=== PATIENT | male | born 1950 | race American Indian/Alaskan Native ===

== ENCOUNTER 2016-10-18 13:14 | Emergency (ER) | payer MEDICARE ==
[2016-10-18 13:14] VITALS: BMI 21.5
[2016-10-18 13:20] VITALS: BP 138/94; PULSE 94; TEMP 98.1
[2016-10-18 13:22] VITALS: RESP 18; O2SAT 97
--- NOTE | 2016-10-18 13:39 | ED PDOC ---
Lower Extremity Pain/Injury Time Seen by Provider: 10/18/16 13:34 Chief Complaint (Nursing): Lower Extremity Problem/Injury Chief Complaint (Provider): Left Foot Pain History Per: Patient History/Exam Limitations: no limitations Onset/Duration Of Symptoms: Days (x6) Current Symptoms Are (Timing): Still Present Additional Complaint(s): Petros Owen is a 66 year old male with a history of diabetes that presents to the ED with a chief complaint of left foot pain that he has been experiencing for the past six days. Patient reports that his pain is concentrated in the back of his left foot, closer to his ankle, and that his pain is exacerbated when we walks. Past Medical History Reviewed: Historical Data, Nursing Documentation, Vital Signs Vital Signs: Last Vital Signs Temp 98.1 F 10/18/16 13:19 Pulse 94 H 10/18/16 13:19 Resp 18 10/18/16 13:19 BP 138/94 H 10/18/16 13:19 Pulse Ox 97 10/18/16 13:19 - Medical History PMH: Anemia, CAD, Colonic Polyps, Fractures (FX. LEFT FOOT -CASTED ONLY), Hepatitis, HIV, HTN, Hypercholesterolemia, Peripheral Edema (in legs), End Stage Renal Disease, Chronic Kidney Disease Denies: Anxiety, Depression, Kidney Stones - Surgical History Surgical History: Coronary Stent (X1), Endoscopy - Family History Family History: States: Unknown Family Hx - Home Medications Home Medications: Ambulatory Orders Medication Instructions Recorded Aspirin [Aspir 81] 81 mg PO DAILY 04/18/12 Paricalcitol [Zemplar] 1 mcg PO DAILY 04/18/12 Clopidogrel Hydrogen Sulfate 75 mg PO DAILY 06/14/12 [Plavix] Minoxidil 10 mg PO BID 06/14/12 Atorvastatin Calcium [Lipitor] 40 mg PO HS 01/12/15 Carvedilol 25 mg PO BID 01/12/15 Insulin Detemir [Levemir] 10 unit SC HS 01/12/15 Sevelamer Carbonate [Renvela] 1,600 mg PO ACTID 01/12/15 hydrALAZINE [Apresoline] 50 mg PO TID 01/12/15 Doxycycline Hyclate 100 mg PO BID 03/26/15 Metronidazole [Flagyl] 250 mg PO BID #20 tab 04/02/15 Tramadol Hydrochloride [Tramadol] 50 mg PO Q4 PRN #20 tab 04/02/15 Doxycycline Hyclate 100 mg PO BID #14 capsule 10/17/15 Diclofenac Sodium 5 gm TP DAILY #1 gel..gram. 10/18/16 - Allergies Allergies/Adverse Reactions: Allergies Allergy/AdvReac Type Severity Reaction Status Date / Time No Known Allergies Allergy Verified 10/18/16 13:16 Review of Systems Musculoskeletal: Positive for: Foot Pain (left foot pain) Physical Exam - Reviewed Nursing Documentation Reviewed: Yes Vital Signs Reviewed: Yes - Physical Exam Appears: Positive for: Non-toxic, No Acute Distress Head Exam: Positive for: ATRAUMATIC, NORMOCEPHALIC Skin: Positive for: Normal Color, Warm Cardiovascular/Chest: Positive for: Regular Rate, Rhythm. Negative for: Murmur Respiratory: Positive for: Normal Breath Sounds. Negative for: Wheezing Extremity: Positive for: Tenderness (TTP left achilles tendon). Negative for: Calf Tenderness, Swelling, Other (Negative [place]' test. No ulcerations. ) Neurologic/Psych: Positive for: Alert, bowstring maker II-XII, Oriented - ECG O2 Sat by Pulse Oximetry: 97 (RA) Pulse Ox Interpretation: Normal Medical Decision Making Medical Decision Making: Impression: Achilles Tendinitis Plan: * X-Ray Left Foot * Reevaluation 14:07 X-Ray is negative. Will give patient Rx Diclofenac Sodium cream for pain. Recommended podiatry consult for orthotics, insole for shoes, and exercises for Achilles. Patient stable for discharge home. Scribe Attestation: Documented by Lenora Garcia, acting as a scribe for Ermelinda Boateng PA-C. Provider Scribe Attestation: All medical record entries made by the Scribe were at my direction and personally dictated by me. I have reviewed the chart and agree that the record accurately reflects my personal performance of the history, physical exam, medical decision making, and the department course for this patient. I have also personally directed, reviewed, and agree with the discharge instructions and disposition. Disposition - Clinical Impression Clinical Impression: Achilles tendinitis - Patient ED Disposition Is Patient to be Admitted: No Counseled Patient/Family Regarding: Studies Performed, Diagnosis, Need For Followup, Rx Given - Disposition Referrals: [facility] [Outside] Podiatry Clinic [Outside] Disposition: Routine/Home Disposition Time: 14:07 Condition: STABLE Additional Instructions: review the exercises for Achilles tendinitis provided to you from the ER Prescriptions: Diclofenac Sodium 5 gm TP DAILY #1 gel..gram. Instructions: Achilles Tendinitis (ED)
--- NOTE | 2016-10-18 14:20 | RAD ---
PROCEDURE: Left Foot Radiographs. HISTORY: foot pain COMPARISON: None. FINDINGS: BONES: No displaced fracture. Osteopenia. JOINTS: Degenerative changes are SOFT TISSUES: Mild diffuse soft tissue swelling. OTHER FINDINGS: Posterior calcaneal spurring. Hammertoe deformities of the 2nd through 5th digits. IMPRESSION: No definite fracture. Further evaluation can be obtained if clinical symptoms persists.
== END 2016-10-18 14:00 | disposition home or self-care (01) ==
LOC: H.ER 13:14
DX: M76.62 Achilles tendinitis, left leg (principal)

== ENCOUNTER 2017-02-26 10:33 | Inpatient (IN) | payer BC, MEDICARE ==
[2017-02-26 10:39] VITALS: BMI 25.0
[2017-02-26] MEDS ORDERED: Iohexol 240 (50 ml) PO ONE (11:16)
[2017-02-26] MEDS ORDERED: HYDROmorphone 0.5 mg/0.5 ml ISec IVP STA (11:16)
--- NOTE | 2017-02-26 11:36 | ED PDOC ---
HPI: Abdomen Time Seen by Provider: 02/26/17 10:59 Chief Complaint (Nursing): GI Problem Chief Complaint (Provider): abdominal pain History Per: Patient History/Exam Limitations: no limitations Onset/Duration Of Symptoms: Days (x1) Current Symptoms Are (Timing): Still Present Additional Complaint(s): Petros Owen is a 66 year old male with previous medical history of diabetes, hypertension, HIV and chronic kidney disease, who presents to the emergency department with a complaint of abdominal pain associated with diarrhea and 2 episodes of vomiting ongoing since 0 last night after eating at a restaurant. Denied any fever or chills. Patient stated he used Milk of Magnesia for symptom relief. PMD: Mati South MD Past Medical History Reviewed: Historical Data, Nursing Documentation, Vital Signs Vital Signs: Last Vital Signs Temp 98.5 F 02/27/17 12:48 Pulse 91 H 02/27/17 15:30 Resp 18 02/27/17 12:48 BP 163/71 H 02/27/17 12:48 Pulse Ox 96 02/27/17 12:48 - Medical History PMH: Anemia, CAD, Colonic Polyps, Fractures (FX. LEFT FOOT -CASTED ONLY), Hepatitis, HIV, HTN, Hypercholesterolemia, Peripheral Edema (in legs), End Stage Renal Disease, Chronic Kidney Disease Denies: Anxiety, Depression, Kidney Stones - Surgical History Surgical History: Coronary Stent (X1), Endoscopy - Family History Family History: States: Unknown Family Hx - Social History Current smoker - smoking cessation education provided: No Ex-Smoker (has not smoked in the last 12 months): Yes Alcohol: None Drugs: Denies - Home Medications Home Medications: Ambulatory Orders Medication Instructions Recorded Atorvastatin [Lipitor] 10 mg PO DAILY 02/26/17 Carvedilol [Coreg] 25 mg PO DAILY 02/26/17 Cinacalcet [Sensipar] 60 mg PO DAILY 02/26/17 Clopidogrel [Plavix] 75 mg PO DAILY 02/26/17 Insulin Detemir [Levemir] 100 unit SC DAILY 02/26/17 Minoxidil [Loniten] 10 mg PO DAILY 02/26/17 Paricalcitol [Zemplar] 1 mcg PO DAILY 02/26/17 - Allergies Allergies/Adverse Reactions: Allergies Allergy/AdvReac Type Severity Reaction Status Date / Time No Known Allergies Allergy Verified 10/18/16 13:16 Review of Systems ROS Statement: Except As Marked, All Systems Reviewed And Found Negative Constitutional: Negative for: Fever, Chills Gastrointestinal: Positive for: Vomiting (x2), Abdominal Pain, Diarrhea Physical Exam - Reviewed Nursing Documentation Reviewed: Yes Vital Signs Reviewed: Yes - Physical Exam Appears: Positive for: Well, Non-toxic, No Acute Distress Head Exam: Positive for: ATRAUMATIC, NORMAL INSPECTION, NORMOCEPHALIC Skin: Positive for: Normal Color Eye Exam: Positive for: Normal appearance ENT: Positive for: Normal ENT Inspection. Negative for: Pharyngeal Erythema Neck: Positive for: Normal, Painless ROM, Supple. Negative for: Decreased ROM Cardiovascular/Chest: Positive for: Regular Rate, Rhythm, Chest Non Tender Respiratory: Positive for: Normal Breath Sounds. Negative for: Decreased Breath Sounds, Respiratory Distress Gastrointestinal/Abdominal: Positive for: Tenderness (diffused), Distended. Negative for: Normal Exam Extremity: Positive for: Normal ROM. Negative for: Tenderness Neurologic/Psych: Positive for: Alert, Oriented - Laboratory Results Result Diagrams: 02/27/17 08:00 02/27/17 08:00 - ECG ECG: Positive for: Interpreted By Me, Viewed By Me ECG Rhythm: Positive for: Normal QRS, Normal ST Segment, Sinus Rhythm. Negative for: ST/T Changes Rate: 91 Medical Decision Making Medical Decision Making: Initial Impression: Abdominal pain Differential Diagnosis: SBO; appendicitis; gastroenteritis; colitis Initial Plan: * CT ABD/pelvis * EKG * CMP * Lipase * Urine dipstick * CBC * Dilaudid 0.5mg IVP * Omnipaque 50ml po * Zofran 4mg IVP [address] Prabhjot davidson for DR Conner patients primary digital media coordinator. She will arrange emergent dialysis tonight. Time: 1500 --Patient was signed out to Dr. Mi Armstrong. Pending CT results. Scribe Attestation: Documented by Kelle Peacock, acting as a scribe for Juan Alberto Parker MD. Provider Scribe Attestation: All medical record entries made by the Scribe were at my direction and personally dictated by me. I have reviewed the chart and agree that the record accurately reflects my personal performance of the history, physical exam, medical decision making, and the department course for this patient. I have also personally directed, reviewed, and agree with the discharge instructions and disposition. Disposition - Clinical Impression Clinical Impression: Abdominal pain, End stage kidney disease, Hyperkalemia - Patient ED Disposition Is Patient to be Admitted: Transfer of Care Counseled Patient/Family Regarding: Studies Performed, Diagnosis - Disposition Disposition: Transfer of Care Disposition Time: 15:00 Condition: FAIR
[2017-02-26] MEDS ORDERED: Iohexol 240 (50 ml) ONE (11:39)
[2017-02-26] MEDS ORDERED: HYDROmorphone 0.5 mg/0.5 ml ISec ONE (11:40)
[2017-02-26 13:11] LABS: BASO % 0.5 % (0.0-2.0); EOS % 0.2 % (0.0-4.0); HEMATOCRIT 38.2 % (35.0-51.0); LYMPH # 0.5 K/uL (1.0-4.3); LYMPH % 5.1 % (20.0-40.0); MEAN CELL VOLUME 82.6 fl (80.0-94.0); MEAN CORPUSCULAR HGB CONC 32.7 g/dL (33.0-37.0); MEAN PLATELET VOLUME 8.8 fl (7.2-11.7); MONO # 0.7 K/uL (0.0-0.8); MONO % 7.9 % (0.0-10.0); NEUT # 7.9 K/uL (1.8-7.0); NEUT % 86.3 % (50.0-75.0); NRBC % 0.1 % (0.0-0.0); PLATELET COUNT 131 K/uL (130-400); RED CELL DISTRIBUTION WIDTH 16.3 % (11.5-14.5); WHITE BLOOD COUNT 9.1 K/uL (4.8-10.8)
[2017-02-26 13:44] LABS: ALB/GLOB RATIO 1.1 (1.0-2.1); BILIRUBIN,TOTAL 0.7 mg/dl (0.2-1.3); CALCIUM 9.1 mg/dL (8.4-10.2); TOTAL PROTEIN 9.8 G/DL (6.3-8.2)
[2017-02-26] MEDS ORDERED: Insulin Regular 100 units/ml IV STA (13:52)
[2017-02-26] MEDS ORDERED: Albuterol 0.083% Inhal Sol (2.5 mg/3 mL) UD INH STA (13:53)
[2017-02-26] MEDS ORDERED: Sod Polystyrene Sulf 15 gm/60 ml Susp PO ONE (13:53)
[2017-02-26 14:09] LABS: NEUTROPHIL 88 % (42-75); TOTAL CELLS COUNTED 100
[2017-02-26] MEDS ORDERED: Sod Polystyrene Sulf 15 gm/60 ml Susp ONE (14:35)
[2017-02-26] MEDS ORDERED: Albuterol 0.083% Inhal Sol (2.5 mg/3 mL) UD ONE (14:35)
[2017-02-26] MEDS ORDERED: WATER IV ONE (14:45)
[2017-02-26] MEDS ORDERED: DEXTROSE 5% IV ONE (14:45)
[2017-02-26] MEDS ORDERED: CALCIUM GLUCONATE IV ONE (14:45)
[2017-02-26] MEDS ORDERED: Insulin Regular 100 units/ml ONE (14:47)
--- NOTE | 2017-02-26 15:14 | ED PDOC ---
- Laboratory Results Result Diagrams: 03/03/17 05:30 03/03/17 05:30 Interpretation Of Abn Labs: NOTE: Above labs are not labs obtained at time of ER evaluation Medical Decision Making Medical Decision Making: Time: 1500 --Patient was endorsed to provider by Dr. Juan Alberto Parker. Pending CT results, re-assessment and final disposition. Accession No. : [id number] Patient Name / ID : MARIAM GARCIA / [id number] Exam Date : 02/26/2017 16:00:11 ( Approved ) Study Comment : Sex / Age : M / 66Y Creator : Navjot Martinez MD Dictator : Finance Executive : Train Operations Supervisor : Navjot Martinez MD Approver2 : Report Date : 02/26/2017 17:13:07 My Comment : PROCEDURE: CT abdomen pelvis dated 02/26/2017. HISTORY: Abdominal pain COMPARISON: None. TECHNIQUE: Contiguous axial images of the abdomen and pelvis pelvis performed of following oral and intravenous injection of approximately 100 cc of Omnipaque 300 contrast material. Coronal and Sagittal reformats generated. Radiation dose: Total exam DLP = 954.89 mGy-cm. This CT exam was performed using one or more of the following dose reduction techniques: Automated exposure control, adjustment of the mA and/or kV according to patient size, and/or use of iterative reconstruction technique. FINDINGS: LOWER THORAX: Mild bibasilar atelectasis/scarring changes right greater than left. Heart appears enlarged. There also appears to be a small pericardial effusion. LIVER: Liver exhibits relatively normal size measuring approximately 17.7 cm in CC dimension. Mild diffuse fatty hepatic infiltration. No obvious hepatic mass collection or calcification. Portal and splenic veins are opacified. The GALLBLADDER AND BILE DUCTS: Gallbladder is physiologically distended. No evidence of intraluminal gallbladder calculi. The PANCREAS: Pancreas is slightly atrophic and fatty replaced. No obvious pancreatic masses collections or calcifications. . SPLEEN: The spleen exhibits normal size. Multiple low-attenuation foci seen scattered throughout the hepatic parenchyma nonspecific. Findings could represents multiple small hemangiomas. . Possibility of infectious and or inflammatory ( including septic emboli) versus underlying malignant lesions not excluded. Clinical correlation recommended. ADRENALS: There are no adrenal lesions identified on this study. KIDNEYS AND URETERS: Apparent status post right nephrectomy. There are multiple rounded varying sized low-attenuation lesions seen scattered throughout the right kidney the largest arising from the anterior medial margin upper/ midpole right kidney that measures approximately 4.27 x 4.1 cm. Most of the lesions felt to represent cysts however several exhibit Hounsfield units and a much higher than simple cysts of. Pre and post-contrast MRI could be performed to exclude any solid components (malignant lesion) given the at current findings of right-sided nephrectomy. . BLADDER: Urinary bladder is incompletely distended which may account for thick-walled appearance. Muscular hypertrophy may contribute. The possibility of cystitis or other intrinsic/invasive wall lesion not excluded. REPRODUCTIVE: Prostate gland measures approximately 3.9 cm in transverse dimension. The small spur at static calcifications are present. The APPENDIX: The appendix is not seen with complete certainty. Metallic clips and/or suture near the cecum the suggest prior appendectomy however clinical correlation with surgical history recommended. . BOWEL: Evaluation of the bowel is somewhat limited due to incomplete opacification. The stomach is incompletely distended which presumably accounts for thick- walled appearance. Gastritis or other intrinsic/invasive wall lesion not excluded. There are multiple distended loops of small bowel some of which contain air . Liquid stool and air seen in the right colon with smaller amount of stool seen throughout the remaining partially collapsed colon. Findings most likely representing ileus however follow-up of plain film of the abdomen in 6-12 hours could be performed to assess for passage contrast material into the colon. PERITONEUM: Unremarkable. No fluid collection. No free air. Small fat containing umbilical hernia. There is a small fat containing left inguinal hernia LYMPH NODES: Unremarkable. No enlarged lymph nodes. VASCULATURE: No evidence of abdominal aortic or iliac artery aneurysms. Atherosclerotic plaque seen along the abdominal aorta and iliac artery. BONES: Multilevel degenerative spondylosis of the lower thoracic and lumbar spine. Changes most notably affecting L4-L5 level. OTHER FINDINGS: None. IMPRESSION: Small pericardial effusion. Mild fatty hepatic infiltration. Findings suggest ileus however confirmation with plain film radiographs in 6-12 hours to assess for passage of contrast material into the colon recommended for confirmation. Appendix is not seen with certainty on this exam and there arm radiopaque suture or metallic clips in the region of the cecum; findings suggest prior cholecystectomy however correlation with surgical history recommended. Apparent status post right nephrectomy. Multiple varying sized rounded low- attenuation lesions scattered throughout the left kidney some of which are clearly cysts and others exhibit Hounsfield units higher than that of simple cysts. Follow-up pre and post-contrast MRI of the left kidney and to confirm cyst of indeterminate and exclude any solid components (malignant lesions) given the findings of right-sided nephrectomy. There are multiple low-attenuation lesions scattered throughout the splenic parenchyma which could represent splenic hemangiomas, infectious/ inflammatory (including septic emboli) or infiltrative malignant lesions not excluded. See above discussion for additional details and findings. Findings discussed with Dr Armstrong at approximately 5:25 p.m. with written down and read back verification. DW Surgery DW Dr South, ID and PMD DW Dr Glaser admitting for Dr Brannon RUCKER pt findings. He reports that he feels he may be getting better and requesting food/drink. However will keep NPO pending continued evaluation and management. Scribe Attestation: Documented by Kelle Peacock, acting as a scribe for Mi Amrstrong MD. Provider Scribe Attestation: All medical record entries made by the Scribe were at my direction and personally dictated by me. I have reviewed the chart and agree that the record accurately reflects my personal performance of the history, physical exam, medical decision making, and the department course for this patient. I have also personally directed, reviewed, and agree with the discharge instructions and disposition. Disposition Counseled Patient/Family Regarding: Studies Performed, Diagnosis - Clinical Impression Clinical Impression: Abdominal pain, End stage kidney disease, Hyperkalemia, Ileus - POA Present On Arrival: Poor Glycemic Control - Disposition Disposition: Admitted as In-Patient Disposition Time: 17:00 Condition: FAIR
[2017-02-26] MEDS ORDERED: Iohexol 300 100 ML IJ ONE (15:53)
[2017-02-26] MEDS ORDERED: Sodium Chloride 0.9% 50 ML IV ONE (15:53)
--- NOTE | 2017-02-26 17:28 | CT ---
PROCEDURE: CT abdomen pelvis dated 02/26/2017. HISTORY: Abdominal pain COMPARISON: None. TECHNIQUE: Contiguous axial images of the abdomen and pelvis pelvis performed of following oral and intravenous injection of approximately 100 cc of Omnipaque 300 contrast material. Coronal and Sagittal reformats generated. Radiation dose: Total exam DLP = 954.89 mGy-cm. This CT exam was performed using one or more of the following dose reduction techniques: Automated exposure control, adjustment of the mA and/or kV according to patient size, and/or use of iterative reconstruction technique. FINDINGS: LOWER THORAX: Mild bibasilar atelectasis/scarring changes right greater than left. Heart appears enlarged. There also appears to be a small pericardial effusion. LIVER: Liver exhibits relatively normal size measuring approximately 17.7 cm in CC dimension. Mild diffuse fatty hepatic infiltration. No obvious hepatic mass collection or calcification. Portal and splenic veins are opacified. The GALLBLADDER AND BILE DUCTS: Gallbladder is physiologically distended. No evidence of intraluminal gallbladder calculi. The PANCREAS: Pancreas is slightly atrophic and fatty replaced. No obvious pancreatic masses collections or calcifications. . SPLEEN: The spleen exhibits normal size. Multiple low-attenuation foci seen scattered throughout the hepatic parenchyma nonspecific. Findings could represents multiple small hemangiomas. . Possibility of infectious and or inflammatory (including septic emboli) versus underlying malignant lesions not excluded. Clinical correlation recommended. ADRENALS: There are no adrenal lesions identified on this study. KIDNEYS AND URETERS: Apparent status post right nephrectomy. There are multiple rounded varying sized low-attenuation lesions seen scattered throughout the right kidney the largest arising from the anterior medial margin upper/ midpole right kidney that measures approximately 4.27 x 4.1 cm. Most of the lesions felt to represent cysts however several exhibit Hounsfield units and a much higher than simple cysts of. Pre and post-contrast MRI could be performed to exclude any solid components (malignant lesion) given the at current findings of right-sided nephrectomy. . BLADDER: Urinary bladder is incompletely distended which may account for thick-walled appearance. Muscular hypertrophy may contribute. The possibility of cystitis or other intrinsic/invasive wall lesion not excluded. REPRODUCTIVE: Prostate gland measures approximately 3.9 cm in transverse dimension. The small spur at static calcifications are present. The APPENDIX: The appendix is not seen with complete certainty. Metallic clips and/or suture near the cecum the suggest prior appendectomy however clinical correlation with surgical history recommended. . BOWEL: Evaluation of the bowel is somewhat limited due to incomplete opacification. The stomach is incompletely distended which presumably accounts for thick-walled appearance. Gastritis or other intrinsic/invasive wall lesion not excluded. There are multiple distended loops of small bowel some of which contain air . Liquid stool and air seen in the right colon with smaller amount of stool seen throughout the remaining partially collapsed colon. Findings most likely representing ileus however follow-up of plain film of the abdomen in 6-12 hours could be performed to assess for passage contrast material into the colon. PERITONEUM: Unremarkable. No fluid collection. No free air. Small fat containing umbilical hernia. There is a small fat containing left inguinal hernia LYMPH NODES: Unremarkable. No enlarged lymph nodes. VASCULATURE: No evidence of abdominal aortic or iliac artery aneurysms. Atherosclerotic plaque seen along the abdominal aorta and iliac artery. BONES: Multilevel degenerative spondylosis of the lower thoracic and lumbar spine. Changes most notably affecting L4-L5 level. OTHER FINDINGS: None. IMPRESSION: Small pericardial effusion. Mild fatty hepatic infiltration. Findings suggest ileus however confirmation with plain film radiographs in 6-12 hours to assess for passage of contrast material into the colon recommended for confirmation. Appendix is not seen with certainty on this exam and there arm radiopaque suture or metallic clips in the region of the cecum; findings suggest prior cholecystectomy however correlation with surgical history recommended. Apparent status post right nephrectomy. Multiple varying sized rounded low-attenuation lesions scattered throughout the left kidney some of which are clearly cysts and others exhibit Hounsfield units higher than that of simple cysts. Follow-up pre and post-contrast MRI of the left kidney and to confirm cyst of indeterminate and exclude any solid components (malignant lesions) given the findings of right-sided nephrectomy. There are multiple low-attenuation lesions scattered throughout the splenic parenchyma which could represent splenic hemangiomas, infectious/ inflammatory (including septic emboli) or infiltrative malignant lesions not excluded. See above discussion for additional details and findings. Findings discussed with Dr Armstrong at approximately 5:25 p.m. with written down and read back verification.
--- NOTE | 2017-02-26 20:52 | CP.PCM.CON ---
<Manoj Adames - Last Filed: 02/26/17 21:59> History of Present Illness - History of Present Illness History of Present Illness: General Surgery Consult Re: Ileus HPI: 66M presented to the emergency department with a complaint of abdominal pain and nausea with 2 induced episodes of clear emesis (spit per pt) today. Pain began after he woke this AM. Pt believes it was the [employer] meal he had at 19:00 last night. Last BM was this morning after he got up. Denies F/C , SOB, chest pains, abnormal bowel movements. Patient stated he used Milk of Magnesia without relief. Currently without any pain. PMH: Anemia, CAD, DM, Hx Hepatitis, HIV, HTN, ESRD on HD, HLD, Hx Renal cell CA R kidney PSH: R Nephrectomy, L arm AVF, Ventral hernia repair SH:Ex smoker and Drinker since 1997. Distant history of drug use, last in 2005. All: NKDA Meds: See MAR Review of Systems - Review of Systems All systems: reviewed and no additional remarkable complaints except (as per HPI ) Past Patient History - Infectious Disease Hx of Infectious Diseases: None - Tetanus Immunizations Tetanus Immunization: Unknown - Past Medical History & Family History Past Medical History?: Yes - Past Social History Alcohol: None Drugs: Denies - CARDIAC Hx Hypercholesterolemia: Yes Hx Hypertension: Yes Hx Peripheral Edema: Yes (in legs) - PULMONARY Hx Respiratory Disorders: No - NEUROLOGICAL Hx Neurological Disorder: No - HEENT Hx Cataracts: Yes (right eye) - RENAL Hx Chronic Kidney Disease: Yes Hx Kidney Stones: No - ENDOCRINE/METABOLIC Hx Diabetes Mellitus Type 2: Yes - HEMATOLOGICAL/ONCOLOGICAL Hx Anemia: Yes Hx Human Immunodeficiency Virus (HIV): Yes - INTEGUMENTARY Hx Dermatological Problems: Yes Other/Comment: Hx abcess - MUSCULOSKELETAL/RHEUMATOLOGICAL Hx Fractures: Yes (FX. LEFT FOOT -CASTED ONLY) - GASTROINTESTINAL Hx Gastrointestinal Disorders: Yes Other/Comment: HX. ABD. HERNIA. HX. RIGHT INGUINAL HERNIA - GENITOURINARY/GYNECOLOGICAL Hx Genitourinary Disorders: Yes Other/Comment: PT. STILL PASSES SOME URINE. - PSYCHIATRIC Hx Anxiety: No Hx Depression: No - SURGICAL HISTORY Hx Coronary Stent: Yes (X1) - ANESTHESIA Hx Anesthesia: Yes Hx Anesthesia Reactions: No Hx Malignant Hyperthermia: No Meds Allergies/Adverse Reactions: Allergies Allergy/AdvReac Type Severity Reaction Status Date / Time No Known Allergies Allergy Verified 10/18/16 13:16 - Medications Medications: Current Medications Dextrose/Sodium Chloride (Dextrose 5%/0.45% Ns 1000 Ml) 1,000 mls @ 80 mls/hr IV .[id number] [facility] Stop: 02/27/17 20:40 Insulin Human Regular (Humulin R) 0 units SC ACHS [facility] PRN Reason: Protocol Pantoprazole Sodium (Protonix Inj) 40 mg IVP DAILY [facility] Physical Exam - Constitutional Appears: Non-toxic, No Acute Distress - Head Exam Head Exam: ATRAUMATIC, NORMOCEPHALIC - Eye Exam Eye Exam: EOMI. absent: Scleral icterus - ENT Exam ENT Exam: Mucous Membranes Dry Additional comments: trachea midline - Respiratory Exam Respiratory Exam: NORMAL BREATHING PATTERN. absent: Respiratory Distress - Cardiovascular Exam Cardiovascular Exam: Tachycardia (mild). absent: JVD - GI/Abdominal Exam GI & Abdominal Exam: Soft. absent: Firm, Guarding, Rebound, Rigid, Tenderness Additional comments: well healed midline incision - Rectal Exam Rectal Exam: Deferred - Extremities Exam Extremities exam: Positive for: normal capillary refill. Negative for: calf tenderness, pedal edema - Back Exam Back exam: absent: CVA tenderness (L), CVA tenderness (R) - Neurological Exam Neurological exam: Alert, Oriented x3 - Psychiatric Exam Psychiatric exam: Normal Affect, Normal Mood - Skin Skin Exam: Dry, Warm Results - Vital Signs Recent Vital Signs: Last Vital Signs Temp 98.1 F 02/26/17 20:05 Pulse 101 H 02/26/17 20:05 Resp 18 02/26/17 20:05 BP 134/85 02/26/17 20:05 Pulse Ox 98 02/26/17 20:05 - Labs Result Diagrams: 02/26/17 13:02 02/26/17 13:02 Labs: Laboratory Results - last 24 hr 02/26/17 02/26/17 13:02 13:02 WBC 9.1 RBC 4.63 Hgb 12.5 Hct 38.2 MCV 82.6 MCH 27.0 MCHC 32.7 L RDW 16.3 H Plt Count 131 MPV 8.8 Neut % (Auto) 86.3 H Lymph % (Auto) 5.1 L [place] % (Auto) 7.9 Eos % (Auto) 0.2 Baso % (Auto) 0.5 Neut # 7.9 H Lymph # 0.5 L [place] # 0.7 Eos # 0.0 Baso # 0.0 Neutrophils % (Manual) 88 H Lymphocytes % (Manual) 5 L Monocytes % (Manual) 7 Platelet Estimate Normal Anisocytosis (manual) Slight Sodium 145 Potassium 6.0 H Chloride 92 L Carbon Dioxide 33 H Anion Gap 26 H BUN 59 H Creatinine 8.3 H* Est GFR ( Amer) 8 Est GFR (Non-Af Amer) 7 Random Glucose 376 H Calcium 9.1 Total Bilirubin 0.7 AST 32 ALT 38 Alkaline Phosphatase 177 H Total Protein 9.8 H Albumin 5.1 H Globulin 4.7 H Albumin/Globulin Ratio 1.1 Lipase 384 H - Imaging and Cardiology CT scan - abdomen Status: Image reviewed by me, Report reviewed by me Assessment & Plan - Assessment and Plan (Free Text) Assessment: 66M with ileus Plan: NPO IVF Monitor for BM Pain control PRN Flat plate in AM to follow up Zofran If vomiting, may place NGT Dr. Gottlieb to see in AM D/W Dr. Chery Adames PGY4 <Fuad Gottlieb - Last Filed: 02/27/17 16:08> History of Present Illness - History of Present Illness History of Present Illness: Patient was seen and examined at the bedside. Agree with resident's note above. Meds - Medications Medications: Current Medications Dextrose/Sodium Chloride (Dextrose 5%/0.45% Ns 1000 Ml) 1,000 mls @ 80 mls/hr IV .[id number] [facility] Stop: 02/27/17 20:40 Last Admin: 02/27/17 09:29 Dose: 80 mls/hr Insulin Human Regular (Humulin R) 0 units SC ACHS [facility] PRN Reason: Protocol Last Admin: 02/27/17 13:59 Dose: 3 u Pantoprazole Sodium (Protonix Inj) 40 mg IVP DAILY [facility] Last Admin: 02/27/17 11:22 Dose: 40 mg Results - Vital Signs Recent Vital Signs: Last Vital Signs Temp 99.1 F 02/27/17 15:51 Pulse 100 H 02/27/17 15:51 Resp 20 02/27/17 15:51 BP 126/83 02/27/17 15:51 Pulse Ox 100 02/27/17 15:51 - Labs Result Diagrams: 02/27/17 08:00 02/27/17 08:00 Labs: Laboratory Results - last 24 hr 02/26/17 02/27/17 02/27/17 23:19 08:00 08:00 WBC 4.4 L D RBC 3.88 L Hgb 10.5 L D Hct 32.1 L MCV 82.5 MCH 27.0 MCHC 32.7 L RDW 16.4 H Plt Count 111 L D MPV 8.7 Neut % (Auto) 63.1 Lymph % (Auto) 15.0 L [place] % (Auto) 19.7 H Eos % (Auto) 1.8 Baso % (Auto) 0.4 Neut # 2.8 Lymph # 0.7 L [place] # 0.9 H Eos # 0.1 Baso # 0.0 Sodium 140 Potassium 5.6 H Chloride 95 L Carbon Dioxide 30 Anion Gap 21 H BUN 71 H Creatinine 10.0 H* D Est GFR ( Amer) 6 Est GFR (Non-Af Amer) 5 POC Glucose (mg/dL) 187 H Random Glucose 228 H Calcium 8.9 Total Bilirubin 0.7 AST 27 ALT 34 Alkaline Phosphatase 100 Total Protein 8.1 Albumin 4.3 Globulin 3.8 Albumin/Globulin Ratio 1.1 02/27/17 12:52 WBC RBC Hgb Hct MCV MCH MCHC RDW Plt Count MPV Neut % (Auto) Lymph % (Auto) [place] % (Auto) Eos % (Auto) Baso % (Auto) Neut # Lymph # [place] # Eos # Baso # Sodium Potassium Chloride Carbon Dioxide Anion Gap BUN Creatinine Est GFR ( Amer) Est GFR (Non-Af Amer) POC Glucose (mg/dL) 221 H Random Glucose Calcium Total Bilirubin AST ALT Alkaline Phosphatase Total Protein Albumin Globulin Albumin/Globulin Ratio
--- NOTE | 2017-02-26 21:06 | CARD ---
APPROVED REPORT EKG Measurement Heart [id number] ID [id number] <Conclusion> Normal sinus rhythm with sinus arrhythmia Normal ECG
[2017-02-26] MEDS: Dextrose 5%/0.45% NS 1,000 ML IV SCH (21:21)
[2017-02-26] MEDS: Insulin Regular 100 units/ml SC SCH (23:34)
[2017-02-27] MEDS: Insulin Regular 100 units/ml SC SCH ×4 (07:49→22:09)
[2017-02-27 08:20] LABS: BASO % 0.4 % (0.0-2.0); EOS # 0.1 K/uL (0.0-0.7); EOS % 1.8 % (0.0-4.0); HEMATOCRIT 32.1 % (35.0-51.0); LYMPH # 0.7 K/uL (1.0-4.3); MEAN CELL VOLUME 82.5 fl (80.0-94.0); MEAN CORPUSCULAR HGB CONC 32.7 g/dL (33.0-37.0); MEAN PLATELET VOLUME 8.7 fl (7.2-11.7); MONO # 0.9 K/uL (0.0-0.8); MONO % 19.7 % (0.0-10.0); NEUT # 2.8 K/uL (1.8-7.0); NEUT % 63.1 % (50.0-75.0); NRBC % 0.1 % (0.0-0.0); RED CELL DISTRIBUTION WIDTH 16.4 % (11.5-14.5); WHITE BLOOD COUNT 4.4 K/uL (4.8-10.8)
[2017-02-27 08:35] LABS: ALB/GLOB RATIO 1.1 (1.0-2.1); BILIRUBIN,TOTAL 0.7 mg/dl (0.2-1.3); CALCIUM 8.9 mg/dL (8.4-10.2); TOTAL PROTEIN 8.1 G/DL (6.3-8.2)
[2017-02-27 08:55] LABS: POTASSIUM 5.6 MMOL/L (3.6-5.0)
[2017-02-27] MEDS: Dextrose 5%/0.45% NS 1,000 ML IV SCH (09:29)
--- NOTE | 2017-02-27 10:24 | RAD ---
HISTORY: Ileus COMPARISON: Abdomen and pelvis CT examination 02/26/2017. FINDINGS: BOWEL: Distended small and large bowel loops appear once again with probable increase in gas within large bowel loops in the right lower quadrant as well as bilateral upper quadrants. No free intraperitoneal gas identified. Retained oral contrast material is seen at the hepatic greater than splenic flexures with limited gas identified in the descending colon as well as oral contrast material. Pattern likely reflects ileus rather than distal large bowel obstruction and further clinical correlation will as radiographic follow-up are advised. An abdomen obstructive series would be more sensitive and evaluating for possible free intrarenal gas and air-fluid levels. No bone large free intrarenal gas collections identified currently. BONES: Normal. OTHER FINDINGS: Vicarious excretion of iodinated contrast material is suggested at the region of the gallbladder in the right upper quadrant. IMPRESSION: Likely developing ileus pattern with intermittent or incomplete distal small bowel obstruction not favored but not completely excluded. Continued clinical and radiographic monitor advised.
--- NOTE | 2017-02-27 10:45 | CP.PCM.PN ---
<Khurram Ac - Last Filed: 02/27/17 10:38> Subjective - Date & Time of Evaluation Date of Evaluation: 02/27/17 Time of Evaluation: 08:20 - Subjective Subjective: General Surgery Patient seen and examined at bedside this AM. Patient had two loose BM last night. Denies current nausea or vomiting. Pain manageable. Denies Fevers, chills , chest pain, shortness of breath. Objective - Vital Signs/Intake and Output Vital Signs (last 24 hours): Temp Pulse Resp BP Pulse Ox 99.1 F 99 H 18 138/78 97 02/27/17 06:52 02/27/17 07:44 02/27/17 07:44 02/27/17 07:44 02/27/17 07:44 - Medications Medications: Current Medications Dextrose/Sodium Chloride (Dextrose 5%/0.45% Ns 1000 Ml) 1,000 mls @ 80 mls/hr IV .[id number] [facility] Stop: 02/27/17 20:40 Last Admin: 02/27/17 09:29 Dose: 80 mls/hr Insulin Human Regular (Humulin R) 0 units SC ACHS [facility] PRN Reason: Protocol Last Admin: 02/27/17 07:49 Dose: Not Given Pantoprazole Sodium (Protonix Inj) 40 mg IVP DAILY [facility] Last Admin: 02/26/17 22:29 Dose: 40 mg - Labs Labs: 02/27/17 08:00 02/27/17 08:00 - Constitutional Appears: Non-toxic, No Acute Distress - Head Exam Head Exam: ATRAUMATIC - Eye Exam Eye Exam: EOMI. absent: Scleral icterus - Respiratory Exam Respiratory Exam: NORMAL BREATHING PATTERN. absent: Accessory Muscle Use, Respiratory Distress - Cardiovascular Exam Cardiovascular Exam: Tachycardia, +S1, +S2. absent: Bradycardia - GI/Abdominal Exam GI & Abdominal Exam: Soft, Normal Bowel Sounds. absent: Firm, Guarding, Rigid, Tenderness Additional comments: Midline incision from previous ex-lap - Extremities Exam Extremities Exam: Normal Inspection. absent: Calf Tenderness - Neurological Exam Neurological Exam: Alert, Awake, Oriented x3 - Psychiatric Exam Psychiatric exam: Normal Affect - Skin Skin Exam: Normal Color, Warm Assessment and Plan - Assessment and Plan (Free Text) Assessment: 66M w/ abdominal pain gastroenteritis vs ileus. Plan: - keep NPO w/ ice chips * advance diet to clears if flatus and bowel function returns - repeat AM labs - monitor bowel function return - IVF/Abx - discussed with surgical attending Khurram Ac PGY1 <Fuad Gottlieb - Last Filed: 02/27/17 16:07> Subjective - Date & Time of Evaluation Time of Evaluation: 09:30 - Subjective Subjective: Patient was seen and examined at the bedside. Agree with resident's note above. Objective - Vital Signs/Intake and Output Vital Signs (last 24 hours): Temp Pulse Resp BP Pulse Ox 99.1 F 100 H 20 126/83 100 02/27/17 15:51 02/27/17 15:51 02/27/17 15:51 02/27/17 15:51 02/27/17 15:51 - Medications Medications: Current Medications Dextrose/Sodium Chloride (Dextrose 5%/0.45% Ns 1000 Ml) 1,000 mls @ 80 mls/hr IV .[id number] [facility] Stop: 02/27/17 20:40 Last Admin: 02/27/17 09:29 Dose: 80 mls/hr Insulin Human Regular (Humulin R) 0 units SC ACHS [facility] PRN Reason: Protocol Last Admin: 02/27/17 13:59 Dose: 3 u Pantoprazole Sodium (Protonix Inj) 40 mg IVP DAILY [facility] Last Admin: 02/27/17 11:22 Dose: 40 mg - Labs Labs: 02/27/17 08:00 02/27/17 08:00
--- NOTE | 2017-02-27 13:31 | CP.PCM.CON ---
History of Present Illness - History of Present Illness History of Present Illness: 66M presented to the emergency department with a complaint of abdominal pain and nausea Pt believes it was caused by the [employer] meal he had at 19:00 last night. Last BM was this morning after he got up. CT done shows SBO abd pain improved with NPO denies fever referred for ID eval and management PMH: Anemia, CAD, DM, Hx Hepatitis, HIV, HTN, ESRD on HD, HLD, Hx Renal cell CA R kidney PSH: R Nephrectomy, L arm AVF, Ventral hernia repair SH:Ex smoker and Drinker since 1997. Distant history of drug use, last in 2005. All: NKDA Meds: See MAR Review of Systems - Constitutional Constitutional: As Per HPI, Weakness. absent: Chills, Headache, Malaise, Weight Gain - EENT Eyes: absent: As Per HPI, Blind Spots, Blurred Vision, Change in Vision, Decreased Night Vision, Diplopia, Discharge, Dry Eye, Exophthalmos, Floaters, Irritation, Itchy Eyes, Loss of Peripheral Vision, Pain, Photophobia, Requires Corrective Lenses, Sees Flashes, Spots in Vision, Tunnel Vision, Other Visual Disturbances, Loss of Vision, Other Nose/Mouth/Throat: absent: As Per HPI, Epistaxis, Nasal Congestion, Nasal Discharge, Nasal Obstruction, Nasal Trauma, Nose Pain, Post Nasal Drip, Sinus Pain, Sinus Pressure, Bleeding Gums, Change in Voice, Dental Pain, Dry Mouth, Dysphagia, Halitosis, Hoarsness, Lip Swelling, Mouth Lesions, Mouth Pain, Odynophagia, Sore Throat, Throat Swelling, Tongue Swelling, Facial Pain, Neck Pain, Neck Mass, Other - Cardiovascular Cardiovascular: absent: As Per HPI, Acrocyanosis, Chest Pain, Chest Pain at Rest , Chest Pain with Activity, Claudication, Diaphoresis, Dyspnea, Dyspnea on Exertion, Edema, Irregular Heart Rhythm, Pain Radiating to Arm/Neck/Jaw, Leg Edema, Leg Ulcers, Lightheadedness, Orthopnea, Palpitations, Paroxysmal Nocturnal Dyspnea, Pedal Edema, Radiating Pain, Rapid Heart Rate, Slow Heart Rate, Syncope, Other - Respiratory Respiratory: absent: As Per HPI, Cough, Dyspnea, Hemoptysis, Dyspnea on Exertion , Wheezing, Snoring, Stridor, Pain on Inspiration, Chest Congestion, Excessive Mucous Production, Change in Mucous Color, Pain with Coughing, Other - Gastrointestinal Gastrointestinal: As Per HPI, Abdominal Pain - Genitourinary Genitourinary: absent: As Per HPI, Change in Urinary Stream, Difficulty Urinating, Dysuria, Flank Pain, Hematuria, Pyuria, Nocturia, Urinary Incontinence, Urinary Frequency, Urinary Hesitance, Urinary Urgency, Voiding Freq/Small Amts, Freq UTI, Hx Renal/Bladder Calculi, Hx /Renal Surgery, Bladder Distension, Other - Musculoskeletal Musculoskeletal: absent: As Per HPI, Abnormal Gait, Arthralgias, Atrophy, Back Pain, Deformity, Joint Swelling, Limited Range of Motion, Loss of Height, Muscle Cramps, Muscle Weakness, Myalgias, Neck Pain, Numbness, Radiating Pain into Limb, Stiffness, Tingling, Other - Integumentary Integumentary: absent: As Per HPI, Acne, Alopecia, Bleeding Lesions, Change in Hair, Change in Nails, Change in Pigmentation, Changing Lesions, Dry Skin, Erythema, Furuncle, Hirsutism, Lesions, New Lesions, Non-Healing Lesions, Photosensitivity, Pruritus, Rash, Skin Pain, Skin Ulcer, Sores, Striae, Swelling , Unusual Bruising, Wounds, Jaundice, Other - Neurological Neurological: absent: As Per HPI, Abnormal Gait, Abnormal Hearing, Abnormal Movements, Abnormal Speech, Behavioral Changes, Burning Sensations, Confusion, Convulsions, Disequilibrium, Dizziness, Numbness, Focal Weakness, Frequent Falls , Headaches, Lack of Coordination, Loss of Vision, Memory Loss, Paresthesias, Radicular Pain, Restless Legs, Sensory Deficit, Syncope, Tingling, Tremor, Vertigo, Weakness, Other Visual Disturbances, Other - Psychiatric Psychiatric: absent: As Per HPI, Abnormal Sleep Pattern, Anhedonia, Anxiety, Auditory Hallucinations, Behavioral Changes, Change in Appetite, Change in Libido, Confusion, Depression, Difficulty Concentrating, Hallucinations, Homicidal Ideation, Hopelessness, Irritability, Memory Loss, Mood Swings, Panic Attacks, Paranoia, Suicidal Ideation, Visual Hallucinations, Tactile Hallucinations, Other - Endocrine Endocrine: absent: As Per HPI, Change in Body Appearance, Change in Libido, Cold Intolorance, Deepening of Voice, Excessive Sweating, Fatigue, Flushing, Heat Intolorance, Increase in Ring/Shoe/Hat Size, Palpitations, Polydipsia, Polyphagia, Polyuria, Other - Hematologic/Lymphatic Hematologic: absent: As Per HPI, Easy Bleeding, Easy Bruising, Lymphadenopathy, Other Past Patient History - Infectious Disease Hx of Infectious Diseases: None - Tetanus Immunizations Tetanus Immunization: Unknown - Past Medical History & Family History Past Medical History?: Yes - Past Social History Alcohol: None Drugs: Denies - CARDIAC Hx Hypercholesterolemia: Yes Hx Hypertension: Yes Hx Peripheral Edema: Yes (in legs) - PULMONARY Hx Respiratory Disorders: No - NEUROLOGICAL Hx Neurological Disorder: No - HEENT Hx Cataracts: Yes (right eye) - RENAL Hx Chronic Kidney Disease: Yes - ENDOCRINE/METABOLIC Hx Endocrine Disorders: Yes - HEMATOLOGICAL/ONCOLOGICAL Hx Blood Disorders: Yes - INTEGUMENTARY Hx Dermatological Problems: Yes - MUSCULOSKELETAL/RHEUMATOLOGICAL Hx Fractures: Yes (FX. LEFT FOOT -CASTED ONLY) - GASTROINTESTINAL Hx Gastrointestinal Disorders: Yes Other/Comment: HX. ABD. HERNIA. HX. RIGHT INGUINAL HERNIA - GENITOURINARY/GYNECOLOGICAL Hx Genitourinary Disorders: Yes - PSYCHIATRIC Hx Anxiety: No Hx Depression: No - SURGICAL HISTORY Hx Coronary Stent: Yes (X1) - ANESTHESIA Hx Anesthesia: Yes Hx Anesthesia Reactions: No Hx Malignant Hyperthermia: No Meds Allergies/Adverse Reactions: Allergies Allergy/AdvReac Type Severity Reaction Status Date / Time No Known Allergies Allergy Verified 10/18/16 13:16 - Medications Medications: Current Medications Dextrose/Sodium Chloride (Dextrose 5%/0.45% Ns 1000 Ml) 1,000 mls @ 80 mls/hr IV .[id number] [facility] Stop: 02/27/17 20:40 Last Admin: 02/27/17 09:29 Dose: 80 mls/hr Insulin Human Regular (Humulin R) 0 units SC ACHS [facility] PRN Reason: Protocol Last Admin: 02/27/17 07:49 Dose: Not Given Pantoprazole Sodium (Protonix Inj) 40 mg IVP DAILY [facility] Last Admin: 02/27/17 11:22 Dose: 40 mg Physical Exam - Constitutional Appears: Non-toxic, Cachectic, Chronically Ill - Head Exam Head Exam: ATRAUMATIC, NORMAL INSPECTION, NORMOCEPHALIC - Eye Exam Eye Exam: PERRL. absent: Scleral icterus - ENT Exam ENT Exam: Mucous Membranes Dry, Normal External Ear Exam - Neck Exam Neck exam: Negative for: Lymphadenopathy - Respiratory Exam Respiratory Exam: Decreased Breath Sounds - Cardiovascular Exam Cardiovascular Exam: REGULAR RHYTHM, +S1, +S2 - GI/Abdominal Exam GI & Abdominal Exam: Diminished Bowel Sounds, Distended, Guarding, Tenderness. absent: Organomegaly, Pulsatile Mass, Rebound, Rigid - Rectal Exam Rectal Exam: Deferred - Exam Exam: NORMAL INSPECTION - Extremities Exam Extremities exam: Positive for: pedal edema - Back Exam Back exam: absent: CVA tenderness (L), CVA tenderness (R) - Neurological Exam Neurological exam: Alert, CN II-XII Intact, Oriented x3, Reflexes Normal - Psychiatric Exam Psychiatric exam: Depressed - Skin Skin Exam: Dry Results - Vital Signs Recent Vital Signs: Last Vital Signs Temp 98.5 F 02/27/17 12:48 Pulse 99 H 02/27/17 12:48 Resp 18 02/27/17 12:48 BP 163/71 H 02/27/17 12:48 Pulse Ox 96 02/27/17 12:48 - Labs Result Diagrams: 02/27/17 08:00 02/27/17 08:00 Labs: Laboratory Results - last 24 hr 02/26/17 02/26/17 02/26/17 13:02 13:02 23:19 WBC 9.1 RBC 4.63 Hgb 12.5 Hct 38.2 MCV 82.6 MCH 27.0 MCHC 32.7 L RDW 16.3 H Plt Count 131 MPV 8.8 Neut % (Auto) 86.3 H Lymph % (Auto) 5.1 L [place] % (Auto) 7.9 Eos % (Auto) 0.2 Baso % (Auto) 0.5 Neut # 7.9 H Lymph # 0.5 L [place] # 0.7 Eos # 0.0 Baso # 0.0 Neutrophils % (Manual) 88 H Lymphocytes % (Manual) 5 L Monocytes % (Manual) 7 Platelet Estimate Normal Anisocytosis (manual) Slight Sodium 145 Potassium 6.0 H Chloride 92 L Carbon Dioxide 33 H Anion Gap 26 H BUN 59 H Creatinine 8.3 H* Est GFR ( Amer) 8 Est GFR (Non-Af Amer) 7 POC Glucose (mg/dL) 187 H Random Glucose 376 H Calcium 9.1 Total Bilirubin 0.7 AST 32 ALT 38 Alkaline Phosphatase 177 H Total Protein 9.8 H Albumin 5.1 H Globulin 4.7 H Albumin/Globulin Ratio 1.1 Lipase 384 H 11/02/27/17 02/27/17 08:00 08:00 12:52 WBC 4.4 L D RBC 3.88 L Hgb 10.5 L D Hct 32.1 L MCV 82.5 MCH 27.0 MCHC 32.7 L RDW 16.4 H Plt Count 111 L D MPV 8.7 Neut % (Auto) 63.1 Lymph % (Auto) 15.0 L [place] % (Auto) 19.7 H Eos % (Auto) 1.8 Baso % (Auto) 0.4 Neut # 2.8 Lymph # 0.7 L [place] # 0.9 H Eos # 0.1 Baso # 0.0 Neutrophils % (Manual) Lymphocytes % (Manual) Monocytes % (Manual) Platelet Estimate Anisocytosis (manual) Sodium 140 Potassium 5.6 H Chloride 95 L Carbon Dioxide 30 Anion Gap 21 H BUN 71 H Creatinine 10.0 H* D Est GFR ( Amer) 6 Est GFR (Non-Af Amer) 5 POC Glucose (mg/dL) 221 H Random Glucose 228 H Calcium 8.9 Total Bilirubin 0.7 AST 27 ALT 34 Alkaline Phosphatase 100 Total Protein 8.1 Albumin 4.3 Globulin 3.8 Albumin/Globulin Ratio 1.1 Lipase Assessment & Plan - Assessment and Plan (Free Text) Assessment: 66 yo male with complex hx including HIV ( low viral load - off HAART) Hep C ( treated) renal cell Ca s/p nephrectomy, DM abnd CAD admitted with SBO possibly due to adhesions Has had GI work up in 2016 which was neg for malignancy Being treated conservatively for now WILL FOLLOW WITH YOU
[2017-02-27] MEDS: Epoetin Alfa 4000 UNIT/ML Inj IV ONE ×2 (13:57→14:04)
[2017-02-28 06:10] LABS: CALCIUM 9.3 mg/dL (8.4-10.2); POTASSIUM 5.1 MMOL/L (3.6-5.0)
[2017-02-28] MEDS: Insulin Regular 100 units/ml SC SCH ×4 (06:36→22:05)
[2017-02-28] MEDS ORDERED: Bisacodyl 5mg EC Tab PO ONE (07:45)
--- NOTE | 2017-02-28 08:39 | CP.PCM.PN ---
<Jaz Alvarez - Last Filed: 02/28/17 08:36> Subjective - Date & Time of Evaluation Date of Evaluation: 02/28/17 Time of Evaluation: 07:00 - Subjective Subjective: General Surgery Dr. Gottlieb Pt S&E @bedside. NAEO. pt reports improved abd pain w/ Bentyl. Objective - Vital Signs/Intake and Output Vital Signs (last 24 hours): Temp Pulse Resp BP Pulse Ox 99 F 110 H 20 125/81 96 02/28/17 08:00 02/28/17 08:00 02/28/17 08:00 02/28/17 08:00 02/28/17 08:00 - Medications Medications: Current Medications Dicyclomine HCl (Bentyl) 10 mg PO TID [facility] Last Admin: 02/28/17 08:33 Dose: 10 mg Docusate Sodium (Colace) 100 mg PO BID [facility] Last Admin: 02/28/17 08:35 Dose: 100 mg Insulin Human Regular (Humulin R) 0 units SC ACHS [facility] PRN Reason: Protocol Last Admin: 02/28/17 06:36 Dose: 2 u Pantoprazole Sodium (Protonix Inj) 40 mg IVP DAILY [facility] Last Admin: 02/28/17 08:35 Dose: 40 mg - Labs Labs: 02/27/17 08:00 02/28/17 04:25 <Fuad Gottlieb - Last Filed: 02/28/17 09:20> Subjective - Date & Time of Evaluation Time of Evaluation: 09:00 - Subjective Subjective: Patient was seen and examined at the bedside. Passing flatus and had a bowel movement. Objective - Vital Signs/Intake and Output Vital Signs (last 24 hours): Temp Pulse Resp BP Pulse Ox 99 F 110 H 20 125/81 96 02/28/17 08:00 02/28/17 08:00 02/28/17 08:00 02/28/17 08:00 02/28/17 08:00 - Medications Medications: Current Medications Dicyclomine HCl (Bentyl) 10 mg PO TID [facility] Last Admin: 02/28/17 08:33 Dose: 10 mg Docusate Sodium (Colace) 100 mg PO BID [facility] Last Admin: 02/28/17 08:35 Dose: 100 mg Insulin Human Regular (Humulin R) 0 units SC ACHS [facility] PRN Reason: Protocol Last Admin: 02/28/17 06:36 Dose: 2 u Pantoprazole Sodium (Protonix Inj) 40 mg IVP DAILY [facility] Last Admin: 02/28/17 08:35 Dose: 40 mg Simethicone (Mylicon Chew Tab) 80 mg PO TID [facility] - Labs Labs: 02/27/17 08:00 02/28/17 04:25 - Constitutional Appears: Well, Non-toxic, No Acute Distress - Head Exam Head Exam: ATRAUMATIC, NORMAL INSPECTION, NORMOCEPHALIC - Eye Exam Eye Exam: EOMI, Normal appearance, PERRL Pupil Exam: NORMAL ACCOMODATION, PERRL - ENT Exam ENT Exam: Mucous Membranes Moist, Normal Exam - Neck Exam Neck Exam: Full ROM, Normal Inspection - Respiratory Exam Respiratory Exam: Clear to Ausculation Bilateral, NORMAL BREATHING PATTERN - Cardiovascular Exam Cardiovascular Exam: REGULAR RHYTHM, +S1, +S2 - GI/Abdominal Exam GI & Abdominal Exam: Soft, Normal Bowel Sounds Additional comments: NT, ND, no rebound, no guarding, well healed scar from prior surgery - Rectal Exam Rectal Exam: Deferred - Extremities Exam Extremities Exam: Full ROM, Normal Inspection - Back Exam Back Exam: NORMAL INSPECTION - Neurological Exam Neurological Exam: Alert, Awake, Oriented x3 - Psychiatric Exam Psychiatric exam: Normal Affect, Normal Mood - Skin Skin Exam: Dry, Intact, Normal Color, Warm Assessment and Plan - Assessment and Plan (Free Text) Assessment: 66 y.o. male with resolving ileus Plan: - Start clear liquid diet - Advance as tolerated - Repeat labs in am - No general surgery intervention at present time - Continue care as per medical team - Will follow
--- NOTE | 2017-02-28 09:51 | CP.PCM.HP ---
History of Present Illness - History of Present Illness History of Present Illness: This is a 66 y/o male with hx of CKD on HD , HIV HTN and DM 2 was admitted for vague abdominal pain preceeded by diarrhea . Sx started after eating in a restaurant. There was no fever or vomiting. Patient was noted to have abdominal distention during examination. CT scan and Xray showed ileus. Present on Admission - Present on Admission Any Indicators Present on Admission: No History of DVT/PE: No History of Uncontrolled Diabetes: Yes Urinary Catheter: No Decubitus Ulcer Present: No Review of Systems - Gastrointestinal Gastrointestinal: Abdominal Pain Past Patient History - Infectious Disease Hx of Infectious Diseases: None - Tetanus Immunizations Tetanus Immunization: Unknown - Past Medical History & Family History Past Medical History?: Yes - Past Social History Alcohol: None Drugs: Denies - CARDIAC Hx Hypercholesterolemia: Yes Hx Hypertension: Yes Hx Peripheral Edema: Yes (in legs) - PULMONARY Hx Respiratory Disorders: No - NEUROLOGICAL Hx Neurological Disorder: No - HEENT Hx Cataracts: Yes (right eye) - RENAL Hx Chronic Kidney Disease: Yes Hx Kidney Stones: No - ENDOCRINE/METABOLIC Hx Endocrine Disorders: Yes Hx Diabetes Mellitus Type 2: Yes - HEMATOLOGICAL/ONCOLOGICAL Hx Anemia: Yes Hx Human Immunodeficiency Virus (HIV): Yes - INTEGUMENTARY Other/Comment: Hx abcess - MUSCULOSKELETAL/RHEUMATOLOGICAL Hx Fractures: Yes (FX. LEFT FOOT -CASTED ONLY) - GASTROINTESTINAL Hx Gastrointestinal Disorders: Yes Other/Comment: HX. ABD. HERNIA. HX. RIGHT INGUINAL HERNIA - GENITOURINARY/GYNECOLOGICAL Other/Comment: PT. STILL PASSES SOME URINE. - PSYCHIATRIC Hx Anxiety: No Hx Depression: No - SURGICAL HISTORY Hx Coronary Stent: Yes (X1) - ANESTHESIA Hx Anesthesia: Yes Hx Anesthesia Reactions: No Hx Malignant Hyperthermia: No Meds Allergies/Adverse Reactions: Allergies Allergy/AdvReac Type Severity Reaction Status Date / Time No Known Allergies Allergy Verified 10/18/16 13:16 Physical Exam - Head Exam Head Exam: NORMAL INSPECTION - Eye Exam Eye Exam: Normal appearance - ENT Exam ENT Exam: Mucous Membranes Moist - Respiratory Exam Respiratory Exam: Clear to Auscultation Bilateral - Cardiovascular Exam Cardiovascular Exam: REGULAR RHYTHM - GI/Abdominal Exam GI & Abdominal Exam: Distended, Hypoactive Bowel Sounds - Neurological Exam Neurological exam: Alert, CN II-XII Intact, Oriented x3 - Psychiatric Exam Psychiatric exam: Normal Mood - Skin Skin Exam: Dry Results - Vital Signs Recent Vital Signs: Last Vital Signs Temp 99 F 02/28/17 08:00 Pulse 110 H 02/28/17 08:00 Resp 20 02/28/17 08:00 BP 125/81 02/28/17 08:00 Pulse Ox 96 02/28/17 08:00 - Labs Result Diagrams: 02/27/17 08:00 02/28/17 04:25 Labs: Laboratory Results - last 24 hr 02/27/17 02/27/17 02/27/17 06:45 12:52 16:06 Sodium Potassium Chloride Carbon Dioxide Anion Gap BUN Creatinine Est GFR ( Amer) Est GFR (Non-Af Amer) POC Glucose (mg/dL) 257 H 221 H 189 H Random Glucose Calcium 02/27/17 02/28/17 02/28/17 21:02 04:25 05:26 Sodium 139 Potassium 5.1 H Chloride 94 L Carbon Dioxide 30 Anion Gap 20 BUN 41 H Creatinine 7.9 H* D Est GFR ( Amer) 8 Est GFR (Non-Af Amer) 7 POC Glucose (mg/dL) 105 187 H Random Glucose 182 H Calcium 9.3 Assessment & Plan (1) Ileus Status: Acute (2) Partial intestinal obstruction Status: Acute (3) Diabetes mellitus type 2 in nonobese Status: Acute (4) Abdominal pain Status: Acute (5) End stage kidney disease Status: Acute (6) Hyperkalemia Status: Acute (7) HIV (human immunodeficiency virus infection) Status: Acute - Assessment and Plan (Free Text) Plan: Cont meds NPO hydrate repeat Xray of silvana abdoemn surgical and nephrology
--- NOTE | 2017-02-28 10:33 | CP.PCM.PN ---
Subjective - Date & Time of Evaluation Date of Evaluation: 02/28/17 Time of Evaluation: 10:31 - Subjective Subjective: No acute overnight events. Patient seen and examined with attending. Abdominal distention improved. Passing flatus. Feeling better. XR and labs reviewed. Will repeat abdominal XR. Simethicone ordered. Patient encouraged to be out of bed and ambulating. Will receive dialysis tomorrow. Objective - Vital Signs/Intake and Output Vital Signs (last 24 hours): Temp Pulse Resp BP Pulse Ox 99 F 110 H 20 125/81 96 02/28/17 08:00 02/28/17 08:00 02/28/17 08:00 02/28/17 08:00 02/28/17 08:00 - Medications Medications: Current Medications Dicyclomine HCl (Bentyl) 10 mg PO TID [facility] Last Admin: 02/28/17 08:33 Dose: 10 mg Docusate Sodium (Colace) 100 mg PO BID [facility] Last Admin: 02/28/17 08:35 Dose: 100 mg Insulin Human Regular (Humulin R) 0 units SC ACHS [facility] PRN Reason: Protocol Last Admin: 02/28/17 06:36 Dose: 2 u Pantoprazole Sodium (Protonix Inj) 40 mg IVP DAILY [facility] Last Admin: 02/28/17 08:35 Dose: 40 mg Simethicone (Mylicon Chew Tab) 80 mg PO TID [facility] - Labs Labs: 02/27/17 08:00 02/28/17 04:25 - Constitutional Appears: Non-toxic, No Acute Distress - Head Exam Head Exam: NORMAL INSPECTION - ENT Exam ENT Exam: Mucous Membranes Moist - Respiratory Exam Respiratory Exam: NORMAL BREATHING PATTERN - Cardiovascular Exam Cardiovascular Exam: REGULAR RHYTHM, +S1, +S2 - GI/Abdominal Exam GI & Abdominal Exam: Distended, Diminished Bowel Sounds. absent: Guarding, Tenderness Additional comments: tympanic to percussion - Extremities Exam Extremities Exam: Normal Inspection. absent: Pedal Edema - Neurological Exam Neurological Exam: Alert, Awake, CN II-XII Intact, Oriented x3 - Psychiatric Exam Psychiatric exam: Normal Affect, Normal Mood - Skin Skin Exam: Dry, Intact, Normal Color, Warm Assessment and Plan (1) Abdominal pain Assessment & Plan: 66 year old male with hx of ESRD on HD, HTN, HLD, IDDM presented with abdominal pain, labs revealed hyperkalemia, imaging with ileus vs partial obstruction. Patient is passing flatus, on liquid diet and tolerating. Currently on bentyl. Encouraged to be out of bed and ambulating. Repeat abdominal flat plate ordered. Status: Acute (2) Hyperkalemia Assessment & Plan: likely 2' to ESRD, improving scheduled for HD tomorrow. Status: Acute (3) Insulin dependent diabetes mellitus Assessment & Plan: mostly controlled continue with sliding scale for now. accuchecks Status: Chronic (4) HTN (hypertension) Assessment & Plan: mostly controlled continue with home medications Status: Chronic (5) End stage kidney disease Assessment & Plan: HD tomorrow, nephrology is following Status: Chronic (6) HIV (human immunodeficiency virus infection) Assessment & Plan: ID is following. patient is off medications Status: Chronic
--- NOTE | 2017-02-28 10:34 | CP.PCM.PN ---
Subjective - Date & Time of Evaluation Date of Evaluation: 02/28/17 Time of Evaluation: 10:33 - Subjective Subjective: dictated Objective - Vital Signs/Intake and Output Vital Signs (last 24 hours): Temp Pulse Resp BP Pulse Ox 99 F 110 H 20 125/81 96 02/28/17 08:00 02/28/17 08:00 02/28/17 08:00 02/28/17 08:00 02/28/17 08:00 - Medications Medications: Current Medications Dicyclomine HCl (Bentyl) 10 mg PO TID [facility] Last Admin: 02/28/17 08:33 Dose: 10 mg Docusate Sodium (Colace) 100 mg PO BID [facility] Last Admin: 02/28/17 08:35 Dose: 100 mg Insulin Human Regular (Humulin R) 0 units SC ACHS [facility] PRN Reason: Protocol Last Admin: 02/28/17 06:36 Dose: 2 u Pantoprazole Sodium (Protonix Inj) 40 mg IVP DAILY [facility] Last Admin: 02/28/17 08:35 Dose: 40 mg Simethicone (Mylicon Chew Tab) 80 mg PO TID [facility] - Labs Labs: 02/27/17 08:00 02/28/17 04:25
--- NOTE | 2017-02-28 11:48 | RAD ---
HISTORY: partial obstruction vs ileus on previous film COMPARISON: Abdomen KUB 02/27/2017. Abdomen pelvis CT with contrast 02/26/2017. FINDINGS: BOWEL: In the interval, a gaseous distention of apparent small-bowel loops appears slightly increased with decrease capacity suggested within the visualized large bowel loops in the periphery which is the pattern intersecting more towards distal small bowel obstruction than ileus at this time. Worsening intermittent or incomplete small bowel obstruction is possible. Consider follow-up CT of the abdomen pelvis with oral and intravenous contrast. No prominent free intrarenal gas and postoperative surgical clips again seen the right willard abdomen. An obstructive series is more sensitive in evaluating for potential free intraperitoneal gas. Vascular calcifications are again seen the pelvis. BONES: Normal. OTHER FINDINGS: None. IMPRESSION: The pattern shifting more towards a distal small bowel obstructive process than ileus at this time though ileus is still including the differs diagnosis. Follow-up CT is advised as discussed above.
[2017-02-28] MEDS: Simethicone 80 mg Chewtab PO SCH ×2 (14:02→16:19)
[2017-02-28] MEDS: Cinacalcet 60 MG TAB PO SCH (14:03)
[2017-02-28] MEDS: Dextrose 5%/0.9% NS 1,000 ML IV SCH (20:22)
[2017-03-01 05:52] LABS: MEAN CELL VOLUME 83.9 fl (80.0-94.0); MEAN CORPUSCULAR HEMOGLOBIN 26.7 pg (27.0-31.0); MEAN CORPUSCULAR HGB CONC 31.9 g/dL (33.0-37.0); WHITE BLOOD COUNT 2.4 K/uL (4.8-10.8)
[2017-03-01 06:24] LABS: CALCIUM 8.2 mg/dL (8.4-10.2); POTASSIUM 5.3 MMOL/L (3.6-5.0)
[2017-03-01] MEDS: Insulin Regular 100 units/ml SC SCH ×4 (06:45→22:23)
--- NOTE | 2017-03-01 08:28 | PQF GENQUE ---
This form is a permanent part of the medical record 03/01/17 Dr South, Please clarify the diagnosis of HIV utilizing the following coding terminology :"Asymptomatic HIV Infection /HIV positive only" : used when no HIV infection symptoms or conditions are present..... versus "Symptomatic HIV Disease /AIDS" : this code is used for pts. who have had a prior diagnosis of an HIV- related illness or CD4 count <200 in the past; HAART OR ...Unable to determine Documentation of HIV ( low viral load-- off HAART) Clarification of your documentation is requested to better reflect the severity of illness and intensity of treatment of your patient. Indicators present [] Specify: [] [] Specify: [] [] Specify: [] [] Specify: [] Location in the medical record that reflects the above clinical findings: [] Treatment Provided: [] PHYSICIAN'S RESPONSE Based on your medical judgment of the clinical indicators outlined above please clarify the following: HIV asymptomatic [] Practitioner response [] If unable to determine, please check the box, sign and date. Present On Admission (POA) Indicator: [] Present at the time of admission [] Not present at the time of admission [] Clinically Undetermined In responding to this query, please exercise your independent professional judgment. The fact that a question is asked does not imply that any particular answer is desired or expected. Thank you for your clarification on this documentation. If you have any questions please call:ext [phone] * Thank you, Karin Villarreal RN CD[facility]
[2017-03-01] MEDS: Cinacalcet 60 MG TAB PO SCH (08:56)
[2017-03-01] MEDS: Dextrose 5%/0.9% NS 1,000 ML IV SCH (08:59)
[2017-03-01] MEDS: Simethicone 80 mg Chewtab PO SCH ×3 (09:03→17:12)
--- NOTE | 2017-03-01 11:07 | CP.PCM.PN ---
Subjective - Date & Time of Evaluation Date of Evaluation: 03/01/17 Time of Evaluation: 10:30 - Subjective Subjective: Patient was seen and examined at the bedside. Reports flatus and several bowel movements. Objective - Vital Signs/Intake and Output Vital Signs (last 24 hours): Temp Pulse Resp BP Pulse Ox 97.8 F 87 18 127/86 95 03/01/17 07:57 03/01/17 08:57 03/01/17 07:57 03/01/17 08:57 03/01/17 07:57 - Medications Medications: Current Medications Atorvastatin Calcium (Lipitor) 10 mg PO DAILY [facility] Last Admin: 03/01/17 08:56 Dose: 10 mg Carvedilol (Coreg) 25 mg PO DAILY [facility] Last Admin: 03/01/17 08:57 Dose: 25 mg Cinacalcet (Sensipar) 60 mg PO DAILY [facility] Last Admin: 03/01/17 08:56 Dose: 60 mg Clopidogrel Bisulfate (Plavix) 75 mg PO DAILY [facility] Last Admin: 03/01/17 08:56 Dose: 75 mg Dicyclomine HCl (Bentyl) 10 mg PO TID [facility] Last Admin: 03/01/17 08:57 Dose: 10 mg Docusate Sodium (Colace) 100 mg PO BID [facility] Last Admin: 03/01/17 08:57 Dose: 100 mg Dextrose/Sodium Chloride (Dextrose 5%/0.9% Ns 1000 Ml) 1,000 mls @ 80 mls/hr IV .[id number] [facility] Stop: 03/01/17 20:03 Last Admin: 03/01/17 08:59 Dose: 80 mls/hr Insulin Human Regular (Humulin R) 0 units SC ACHS [facility] PRN Reason: Protocol Last Admin: 03/01/17 06:45 Dose: 3 u Minoxidil (Loniten) 10 mg PO DAILY [facility] Last Admin: 03/01/17 08:56 Dose: 10 mg Ondansetron HCl (Zofran Inj) 4 mg IVP Q6 PRN PRN Reason: Nausea/Vomiting Last Admin: 02/28/17 20:10 Dose: 4 mg Pantoprazole Sodium (Protonix Inj) 40 mg IVP DAILY [facility] Last Admin: 03/01/17 08:55 Dose: 40 mg Simethicone (Mylicon Chew Tab) 80 mg PO TID [facility] Last Admin: 03/01/17 09:03 Dose: 80 mg - Labs Labs: 03/01/17 04:30 03/01/17 04:30 - Constitutional Appears: Well, Non-toxic, No Acute Distress - Head Exam Head Exam: ATRAUMATIC, NORMAL INSPECTION, NORMOCEPHALIC - Eye Exam Eye Exam: EOMI, Normal appearance, PERRL Pupil Exam: NORMAL ACCOMODATION, PERRL - ENT Exam ENT Exam: Mucous Membranes Moist, Normal Exam - Neck Exam Neck Exam: Full ROM, Normal Inspection - Respiratory Exam Respiratory Exam: Clear to Ausculation Bilateral, NORMAL BREATHING PATTERN - Cardiovascular Exam Cardiovascular Exam: REGULAR RHYTHM, +S1, +S2 - GI/Abdominal Exam GI & Abdominal Exam: Soft, Normal Bowel Sounds Additional comments: NT, mildly distended, no rebound, no guarding, well healed scar from prior surgery - Rectal Exam Rectal Exam: Deferred - Extremities Exam Extremities Exam: Full ROM, Normal Inspection - Neurological Exam Neurological Exam: Alert, Awake, Oriented x3 - Psychiatric Exam Psychiatric exam: Normal Affect, Normal Mood - Skin Skin Exam: Dry, Intact, Normal Color, Warm Assessment and Plan - Assessment and Plan (Free Text) Assessment: 66 y.o. male with ileus Plan: - Advance diet as tolerated - Repeat labs in am - No general surgery intervention at present time - Continue care as per medical team - Will follow
[2017-03-01 11:11] LABS: HEMATOCRIT 31.1 % (35.0-51.0); MEAN CELL VOLUME 81.9 fl (80.0-94.0); RED CELL DISTRIBUTION WIDTH 15.8 % (11.5-14.5); WHITE BLOOD COUNT 2.5 K/uL (4.8-10.8)
[2017-03-01] MEDS ORDERED: Dextrose 5%/0.9% NS 1,000 ML IV SCH (11:38)
[2017-03-01 11:40] LABS: CALCIUM 8.9 mg/dL (8.4-10.2); POTASSIUM 5.7 MMOL/L (3.6-5.0)
--- NOTE | 2017-03-01 13:39 | CP.PCM.PN ---
Subjective - Date & Time of Evaluation Date of Evaluation: 03/01/17 Time of Evaluation: 10:00 - Subjective Subjective: passing gas reports some vomiting no fever alert denies chest pain Objective - Vital Signs/Intake and Output Vital Signs (last 24 hours): Temp Pulse Resp BP Pulse Ox 98.6 F 76 18 117/78 95 03/01/17 12:08 03/01/17 12:08 03/01/17 12:08 03/01/17 12:08 03/01/17 12:08 - Medications Medications: Current Medications Atorvastatin Calcium (Lipitor) 10 mg PO DAILY [facility] Last Admin: 03/01/17 08:56 Dose: 10 mg Carvedilol (Coreg) 25 mg PO DAILY [facility] Last Admin: 03/01/17 08:57 Dose: 25 mg Cinacalcet (Sensipar) 60 mg PO DAILY [facility] Last Admin: 03/01/17 08:56 Dose: 60 mg Clopidogrel Bisulfate (Plavix) 75 mg PO DAILY [facility] Last Admin: 03/01/17 08:56 Dose: 75 mg Dicyclomine HCl (Bentyl) 10 mg PO TID [facility] Last Admin: 03/01/17 12:17 Dose: 10 mg Docusate Sodium (Colace) 100 mg PO BID [facility] Last Admin: 03/01/17 08:57 Dose: 100 mg Dextrose/Sodium Chloride (Dextrose 5%/0.9% Ns 1000 Ml) 1,000 mls @ 50 mls/hr IV .Q20H [facility] Stop: 03/01/17 20:03 Last Admin: 03/01/17 12:16 Dose: Not Given Insulin Human Regular (Humulin R) 0 units SC ACHS [facility] PRN Reason: Protocol Last Admin: 03/01/17 12:25 Dose: 2 u Minoxidil (Loniten) 10 mg PO DAILY [facility] Last Admin: 03/01/17 08:56 Dose: 10 mg Ondansetron HCl (Zofran Inj) 4 mg IVP Q6 PRN PRN Reason: Nausea/Vomiting Last Admin: 02/28/17 20:10 Dose: 4 mg Pantoprazole Sodium (Protonix Inj) 40 mg IVP DAILY [facility] Last Admin: 03/01/17 08:55 Dose: 40 mg Simethicone (Mylicon Chew Tab) 80 mg PO TID [facility] Last Admin: 03/01/17 12:19 Dose: 80 mg - Labs Labs: 03/01/17 10:30 03/01/17 10:30 - Constitutional Appears: Non-toxic, Chronically Ill - Head Exam Head Exam: NORMOCEPHALIC - Eye Exam Eye Exam: PERRL - ENT Exam ENT Exam: Mucous Membranes Dry - Neck Exam Neck Exam: absent: Lymphadenopathy - Respiratory Exam Respiratory Exam: Decreased Breath Sounds, Clear to Ausculation Bilateral - Cardiovascular Exam Cardiovascular Exam: REGULAR RHYTHM, +S1, +S2 - GI/Abdominal Exam GI & Abdominal Exam: Distended, Soft. absent: Tenderness - Rectal Exam Rectal Exam: Deferred - Exam Exam: NORMAL INSPECTION - Extremities Exam Extremities Exam: absent: Pedal Edema - Back Exam Back Exam: absent: CVA tenderness (L), CVA tenderness (R) - Neurological Exam Neurological Exam: Alert, Awake, Oriented x3 - Psychiatric Exam Psychiatric exam: Normal Mood - Skin Skin Exam: Dry Assessment and Plan (1) CAD (coronary artery disease) Status: Acute (2) CAD (coronary artery disease) Status: Acute (3) Abdominal pain Status: Acute (4) Diabetes mellitus type 2 in nonobese Status: Acute (5) Ileus Status: Acute (6) Partial intestinal obstruction Status: Acute (7) End stage kidney disease Status: Chronic (8) HTN (hypertension) Status: Chronic (9) Insulin dependent diabetes mellitus Status: Chronic (10) Hepatitis C infection Status: Acute (11) HIV (human immunodeficiency virus infection) Status: Chronic
--- NOTE | 2017-03-01 14:29 | CP.PCM.PN ---
Subjective - Date & Time of Evaluation Date of Evaluation: 03/01/17 Time of Evaluation: 10:00 - Subjective Subjective: Patient seen and examined with Dr. Glaser. Patient had episode of vomiting yesterday. He is now NPO, on gentle IV hydration due to CKD on HD. He continues to have significant abdominal distention, more bowel sounds than yesterday. He states he is passing flatus, and he had small BM yesterday. Will continue with IV hydration. Surgery reevaluated the patient, sx due to ileus, no surgical intervention at this time. ID is following. Objective - Vital Signs/Intake and Output Vital Signs (last 24 hours): Temp Pulse Resp BP Pulse Ox 98.6 F 76 18 117/78 95 03/01/17 12:08 03/01/17 12:08 03/01/17 12:08 03/01/17 12:08 03/01/17 12:08 - Medications Medications: Current Medications Atorvastatin Calcium (Lipitor) 10 mg PO DAILY [facility] Last Admin: 03/01/17 08:56 Dose: 10 mg Carvedilol (Coreg) 25 mg PO DAILY [facility] Last Admin: 03/01/17 08:57 Dose: 25 mg Cinacalcet (Sensipar) 60 mg PO DAILY [facility] Last Admin: 03/01/17 08:56 Dose: 60 mg Clopidogrel Bisulfate (Plavix) 75 mg PO DAILY [facility] Last Admin: 03/01/17 08:56 Dose: 75 mg Dicyclomine HCl (Bentyl) 10 mg PO TID [facility] Last Admin: 03/01/17 12:17 Dose: 10 mg Docusate Sodium (Colace) 100 mg PO BID [facility] Last Admin: 03/01/17 08:57 Dose: 100 mg Dextrose/Sodium Chloride (Dextrose 5%/0.9% Ns 1000 Ml) 1,000 mls @ 50 mls/hr IV .Q20H [facility] Stop: 03/01/17 20:03 Last Admin: 03/01/17 12:16 Dose: Not Given Insulin Human Regular (Humulin R) 0 units SC ACHS [facility] PRN Reason: Protocol Last Admin: 03/01/17 12:25 Dose: 2 u Minoxidil (Loniten) 10 mg PO DAILY [facility] Last Admin: 03/01/17 08:56 Dose: 10 mg Ondansetron HCl (Zofran Inj) 4 mg IVP Q6 PRN PRN Reason: Nausea/Vomiting Last Admin: 02/28/17 20:10 Dose: 4 mg Pantoprazole Sodium (Protonix Inj) 40 mg IVP DAILY [facility] Last Admin: 03/01/17 08:55 Dose: 40 mg Simethicone (Mylicon Chew Tab) 80 mg PO TID [facility] Last Admin: 03/01/17 12:19 Dose: 80 mg - Labs Labs: 03/01/17 10:30 03/01/17 10:30 - Constitutional Appears: Well - Head Exam Head Exam: ATRAUMATIC, NORMAL INSPECTION, NORMOCEPHALIC - Respiratory Exam Respiratory Exam: Clear to Ausculation Bilateral, NORMAL BREATHING PATTERN - Cardiovascular Exam Cardiovascular Exam: REGULAR RHYTHM, +S1, +S2. absent: Murmur - GI/Abdominal Exam GI & Abdominal Exam: Distended, Hypoactive Bowel Sounds. absent: Guarding, Rigid, Tenderness, Rebound Assessment and Plan (1) Abdominal pain Assessment & Plan: 66 year old male with hx of ESRD on HD, HTN, HLD, IDDM presented with abdominal pain, labs revealed hyperkalemia, imaging with ileus vs partial obstruction. Pain is resolved he now just has abdominal distention, PO intolerance. Patient is passing flatus, had small BM. However he had some vomiting yesterday. He is now NPO, on IVF. He is for HD today. Encouraged to be out of bed and ambulating. Status: Resolved (2) Abdominal distention Assessment & Plan: as above Status: Acute (3) Hyperkalemia Assessment & Plan: secondary to CKD, butt welder reviewed, no acute changes. pt for hemodyalisis today. repeat BMP in AM Status: Acute (4) Insulin dependent diabetes mellitus Assessment & Plan: mostly controlled, high BG reading on labs due to lab draw from arm with IVF. sliding scale accuchecks Status: Chronic (5) HTN (hypertension) Assessment & Plan: mostly controlled continue with home medications Status: Chronic (6) End stage kidney disease Assessment & Plan: hemodyalisis as per nephrology Status: Chronic (7) HIV (human immunodeficiency virus infection) Assessment & Plan: not on ART Status: Chronic (8) Pancytopenia Assessment & Plan: likely 2' to anemia of chronic disease, normocytic potentially hg drop dilutional due to ivf leukopenia likely 2' to chronic HIV infection thrombocytopenia likely 2' to uremia due to CKD Status: Acute
--- NOTE | 2017-03-01 15:14 | RAD ---
HISTORY: Vomiting. COMPARISON: February 28, 2017. FINDINGS: BOWEL: Distended small bowel consistent with distal small-bowel obstruction. Small lobes of air identified beyond the point of obstruction have diminished. BONES: Normal. OTHER FINDINGS: None. IMPRESSION: Persistent high-grade small bowel obstruction.
--- NOTE | 2017-03-01 15:56 | CP.PCM.PN ---
Subjective - Date & Time of Evaluation Date of Evaluation: 03/01/17 Time of Evaluation: 15:52 - Subjective Subjective: Dialysis note he was seen on HD now . discussed with youth pastor . BP went down he took anti hypertensive meds. no UF NA 138 K 2.0meq bicarb 34 c/o of less abdominal pain. P/E chest clear HT. no rubs. Abd. soft. ext. no edema A/P ESRD admitted with abdominal pain ,doing better HIV as per ID review lab with pt. stable. anemia on EPO. Objective - Vital Signs/Intake and Output Vital Signs (last 24 hours): Temp Pulse Resp BP Pulse Ox 97.2 F L 76 20 111/70 94 L 03/01/17 15:39 03/01/17 15:39 03/01/17 15:39 03/01/17 15:39 03/01/17 15:39 - Medications Medications: Current Medications Atorvastatin Calcium (Lipitor) 10 mg PO DAILY [facility] Last Admin: 03/01/17 08:56 Dose: 10 mg Carvedilol (Coreg) 25 mg PO DAILY [facility] Last Admin: 03/01/17 08:57 Dose: 25 mg Cinacalcet (Sensipar) 60 mg PO DAILY [facility] Last Admin: 03/01/17 08:56 Dose: 60 mg Clopidogrel Bisulfate (Plavix) 75 mg PO DAILY [facility] Last Admin: 03/01/17 08:56 Dose: 75 mg Dicyclomine HCl (Bentyl) 10 mg PO TID [facility] Last Admin: 03/01/17 12:17 Dose: 10 mg Docusate Sodium (Colace) 100 mg PO BID [facility] Last Admin: 03/01/17 08:57 Dose: 100 mg Dextrose/Sodium Chloride (Dextrose 5%/0.9% Ns 1000 Ml) 1,000 mls @ 50 mls/hr IV .Q20H [facility] Stop: 03/01/17 20:03 Last Admin: 03/01/17 12:16 Dose: Not Given Insulin Human Regular (Humulin R) 0 units SC ACHS [facility] PRN Reason: Protocol Last Admin: 03/01/17 12:25 Dose: 2 u Minoxidil (Loniten) 10 mg PO DAILY [facility] Last Admin: 03/01/17 08:56 Dose: 10 mg Ondansetron HCl (Zofran Inj) 4 mg IVP Q6 PRN PRN Reason: Nausea/Vomiting Last Admin: 02/28/17 20:10 Dose: 4 mg Pantoprazole Sodium (Protonix Inj) 40 mg IVP DAILY [facility] Last Admin: 03/01/17 08:55 Dose: 40 mg Simethicone (Mylicon Chew Tab) 80 mg PO TID [facility] Last Admin: 03/01/17 12:19 Dose: 80 mg - Labs Labs: 03/01/17 10:30 03/01/17 10:30
[2017-03-01] MEDS ORDERED: Chlorhexidine Gluconate 1 APPL/PKT TP ONE (20:58)
--- NOTE | 2017-03-01 22:09 | PN ---
DATE: SUBJECTIVE: Patient who is 66 years of age, Afro-Faro[place] male, was admitted yesterday with abdominal pain; however, today does not complain of abdominal pain as much and is feeling much better. No vomiting reported and no diarrhea reported. As a matter of fact, he is complaining of some constipation, perhaps. ROS reviewed. and acceptable except aboe . SH nothing contributing. PMH HIV,ESRD,RT. nephrectomy PHYSICAL EXAMINATION: GENERAL: Patient is conscious, not in acute distress. VITAL SIGNS: Blood pressure 125/81, pulse 110 and 105 on different occasions, temperature 99. NECK: Supple. CHEST: No rales or wheezing. HEART: No rubs or gallop. ABDOMEN: Soft, bowel sounds were active. EXTREMITIES: No edema. LABORATORY DATA: Showed WBC 4.4, hemoglobin is 10.5. His glucose 187, creatinine post-dialysis today 7.9, potassium 5.1, sodium 139. IMPRESSION: 1. Patient who has end-stage renal disease, continue maintenance dialysis Monday, Monday, and Monday. 2. Patient is diabetic as per primary team. 3. Abdominal pain. Patient had CT scan, seen by Infectious Disease to rule out intra-abdominal pathology. In addition, patient has history of renal cell carcinoma of the right kidney, which I believe he had right nephrectomy in the past and he has in the left arm arteriovenous shunt and he has also ventral hernia repair. Continue the same management with the dialysis as scheduled for tomorrow. Vital signs stable. Continue monitoring. Miguel Conner MD [facility]
--- NOTE | 2017-03-01 22:13 | CON ---
DATE: REQUESTING PHYSICIAN: Juanito Glaser MD. REASON FOR CONSULTATION: The patient is on chronic dialysis. HISTORY OF PRESENT ILLNESS: This patient who is 66 years of age, male, who is on dialysis 3 times a week and he [place] [facility] [place]. Patient stated that he has complaint of abdominal pain, nausea and vomiting for which he came to the emergency room. PAST MEDICAL HISTORY: Patient stated that he has a history of coronary artery disease. Also, he has past medical history of anemia, diabetes mellitus, history of hepatitis, HIV, hypertension, end-stage renal disease, and renal cell carcinoma with right nephrectomy some years ago and also he has a right arm AV fistula and ventral hernia repair. SOCIAL HISTORY: He is an ex-smoker and drinker and he has a history of drug abuse in the past since 2005 that has been stopped apparently. REVIEW OF SYSTEMS: Except of the symptom that we mentioned, nausea, vomiting, epigastric pain, the rest of the review of systems unremarkable including all the systems. PHYSICAL EXAMINATION: GENERAL: Patient is conscious, alert, not in acute distress. VITAL SIGNS: Blood pressure 110/89 and 138/78, temperature 98.9 with a pulse 82. NECK: Supple. CHEST: No rales or rhonchi. HEART: No rubs could be appreciated, regular sinus rhythm. ABDOMEN: Mild tenderness in the mid epigastric area. EXTREMITIES: No significant edema was noted. IMAGING: Abdominal CT scan showed the report as noted in the chart, very lengthy report. Please see the details. Basically, he has some ileus and requiring more of x-ray among other things. See the detail of the report please. LABORATORY DATA: Showed the following: His hemoglobin 10.5, WBC 4.4. Creatinine 10.0, potassium 5.6, sodium 140. IMPRESSION: 1. Patient was admitted with abdominal pain, probably abdominal ileus, to be monitored to rule out acute abdomen, which is questionable. 2. In the meantime, the patient also has end-stage renal disease, on maintenance hemodialysis. 3. Hyperkalemia. PLAN: To do dialysis, consent was taken. I explained to the patient, he is aware about dialysis. He is on dialysis for number of years. The dialysis path will be 2 mEq. Patient has hyperkalemia, which will be treated during dialysis. Arrangement has been done. Order was given. Miguel Conner MD [facility] # [id number]
[2017-03-02] MEDS: Insulin Regular 100 units/ml SC SCH ×4 (06:47→22:16)
--- NOTE | 2017-03-02 08:00 | CP.PCM.PN ---
<KimJaz - Last Filed: 03/02/17 07:56> Subjective - Date & Time of Evaluation Date of Evaluation: 03/02/17 Time of Evaluation: 07:05 - Subjective Subjective: General Surgery Dr. Gottlieb Pt S&E @bedside. Pt c/o worsening abd pain and distention overnight. NGT placed and dislodges during sleep. This morning, pt reporting abd pain though improved from last night. Pt admits to continued abd distention. (+)Flatus, (-) BM. denies N/V, F/C. currently NPO. Objective - Vital Signs/Intake and Output Vital Signs (last 24 hours): Temp Pulse Resp BP Pulse Ox 99.5 F 95 H 18 103/69 97 03/02/17 04:40 03/02/17 04:40 03/02/17 04:40 03/02/17 04:40 03/02/17 04:40 Intake and Output: 03/02/17 03/02/17 06:59 18:59 Intake Total 600 Output Total 150 Balance 450 - Medications Medications: Current Medications Atorvastatin Calcium (Lipitor) 10 mg PO DAILY [facility] Last Admin: 03/01/17 08:56 Dose: 10 mg Carvedilol (Coreg) 25 mg PO DAILY [facility] Last Admin: 03/01/17 08:57 Dose: 25 mg Cinacalcet (Sensipar) 60 mg PO DAILY [facility] Last Admin: 03/01/17 08:56 Dose: 60 mg Clopidogrel Bisulfate (Plavix) 75 mg PO DAILY [facility] Last Admin: 03/01/17 08:56 Dose: 75 mg Dicyclomine HCl (Bentyl) 10 mg PO TID [facility] Last Admin: 03/01/17 17:12 Dose: 10 mg Docusate Sodium (Colace) 100 mg PO BID [facility] Last Admin: 03/01/17 17:12 Dose: 100 mg Insulin Human Regular (Humulin R) 0 units SC [facility] PRN Reason: Protocol Last Admin: 03/02/17 06:47 Dose: Not Given Minoxidil (Loniten) 10 mg PO DAILY [facility] Last Admin: 03/01/17 08:56 Dose: 10 mg Ondansetron HCl (Zofran Inj) 4 mg IVP Q4 [facility] Pantoprazole Sodium (Protonix Inj) 40 mg IVP BID [facility] Simethicone (Mylicon Chew Tab) 80 mg PO TID [facility] Last Admin: 03/01/17 17:12 Dose: 80 mg - Labs Labs: 03/01/17 10:30 03/01/17 10:30 - Constitutional Appears: Non-toxic, No Acute Distress - Head Exam Head Exam: NORMAL INSPECTION - Eye Exam Eye Exam: Normal appearance - ENT Exam ENT Exam: Mucous Membranes Moist - Respiratory Exam Respiratory Exam: NORMAL BREATHING PATTERN. absent: Accessory Muscle Use, Respiratory Distress - Cardiovascular Exam Cardiovascular Exam: Tachycardia, REGULAR RHYTHM. absent: Bradycardia - GI/Abdominal Exam GI & Abdominal Exam: Distended (moderate), Soft. absent: Firm, Guarding, Rigid , Tenderness, Rebound - Extremities Exam Extremities Exam: Normal Inspection - Neurological Exam Neurological Exam: Alert, Awake, Oriented x3 - Psychiatric Exam Psychiatric exam: Normal Affect, Normal Mood - Skin Skin Exam: Dry, Intact, Normal Color, Warm Assessment and Plan - Assessment and Plan (Free Text) Assessment: 66 y/o M w/ SBO vs ileus - GI series w/ small bowel follow through - f/u AM labs - cont NPO, IVF - monitor bowel fxn - cont pain management - cont medical management Pt discussed w/ Dr. Chery Alvarez DO PGY2 <Fuad Gottlieb - Last Filed: 03/02/17 10:28> Subjective - Date & Time of Evaluation Time of Evaluation: 09:45 - Subjective Subjective: Patient was seen and examined. Passing flatus. Agree with resident's note above. Objective - Vital Signs/Intake and Output Vital Signs (last 24 hours): Temp Pulse Resp BP Pulse Ox 98.5 F 82 17 120/77 100 03/02/17 08:04 03/02/17 09:00 03/02/17 08:04 03/02/17 08:52 03/02/17 08:04 Intake and Output: 03/02/17 03/02/17 06:59 18:59 Intake Total 600 Output Total 150 Balance 450 - Medications Medications: Current Medications Atorvastatin Calcium (Lipitor) 10 mg PO DAILY [facility] Last Admin: 03/02/17 08:55 Dose: Not Given Carvedilol (Coreg) 25 mg PO DAILY [facility] Last Admin: 03/02/17 08:52 Dose: 25 mg Cinacalcet (Sensipar) 60 mg PO DAILY [facility] Last Admin: 03/02/17 08:56 Dose: Not Given Clopidogrel Bisulfate (Plavix) 75 mg PO DAILY [facility] Last Admin: 03/02/17 08:55 Dose: Not Given Diatrizoate Meglum/Diatrizoate Sod (Md-Gastroview 66-10% (30 Ml)) 30 ml PO ONCE ONE Stop: 03/02/17 10:19 Dicyclomine HCl (Bentyl) 10 mg PO TID [facility] Last Admin: 03/02/17 08:55 Dose: Not Given Docusate Sodium (Colace) 100 mg PO BID [facility] Last Admin: 03/02/17 08:55 Dose: Not Given Dextrose/Sodium Chloride (Dextrose 5%/0.9% Ns 1000 Ml) 1,000 mls @ 50 mls/hr IV .Q20H [facility] Stop: 03/03/17 08:49 Insulin Human Regular (Humulin R) 0 units SC ACHS [facility] PRN Reason: Protocol Last Admin: 03/02/17 06:47 Dose: Not Given Minoxidil (Loniten) 10 mg PO DAILY [facility] Last Admin: 03/02/17 08:55 Dose: Not Given Ondansetron HCl (Zofran Inj) 4 mg IVP Q4 [facility] Last Admin: 03/02/17 08:52 Dose: 4 mg Pantoprazole Sodium (Protonix Inj) 40 mg IVP BID [facility] Last Admin: 03/02/17 08:52 Dose: 40 mg Simethicone (Mylicon Chew Tab) 80 mg PO TID [facility] Last Admin: 03/02/17 08:55 Dose: Not Given - Labs Labs: 03/01/17 10:30 03/02/17 08:30
[2017-03-02] MEDS: Simethicone 80 mg Chewtab PO SCH ×3 (08:55→17:32)
[2017-03-02] MEDS: Cinacalcet 60 MG TAB PO SCH (08:56)
--- NOTE | 2017-03-02 08:57 | CP.PCM.PN ---
Subjective - Date & Time of Evaluation Date of Evaluation: 03/02/17 Time of Evaluation: 08:56 - Subjective Subjective: dictated Objective - Vital Signs/Intake and Output Vital Signs (last 24 hours): Temp Pulse Resp BP Pulse Ox 98.5 F 82 17 120/77 100 03/02/17 08:04 03/02/17 08:52 03/02/17 08:04 03/02/17 08:52 03/02/17 08:04 Intake and Output: 03/02/17 03/02/17 06:59 18:59 Intake Total 600 Output Total 150 Balance 450 - Medications Medications: Current Medications Atorvastatin Calcium (Lipitor) 10 mg PO DAILY [facility] Last Admin: 03/02/17 08:55 Dose: Not Given Carvedilol (Coreg) 25 mg PO DAILY [facility] Last Admin: 03/02/17 08:52 Dose: 25 mg Cinacalcet (Sensipar) 60 mg PO DAILY [facility] Last Admin: 03/02/17 08:56 Dose: Not Given Clopidogrel Bisulfate (Plavix) 75 mg PO DAILY [facility] Last Admin: 03/02/17 08:55 Dose: Not Given Dicyclomine HCl (Bentyl) 10 mg PO TID [facility] Last Admin: 03/02/17 08:55 Dose: Not Given Docusate Sodium (Colace) 100 mg PO BID [facility] Last Admin: 03/02/17 08:55 Dose: Not Given Dextrose/Sodium Chloride (Dextrose 5%/0.9% Ns 1000 Ml) 1,000 mls @ 50 mls/hr IV .Q20H [facility] Stop: 03/03/17 08:49 Insulin Human Regular (Humulin R) 0 units SC ACHS [facility] PRN Reason: Protocol Last Admin: 03/02/17 06:47 Dose: Not Given Minoxidil (Loniten) 10 mg PO DAILY [facility] Last Admin: 03/02/17 08:55 Dose: Not Given Ondansetron HCl (Zofran Inj) 4 mg IVP Q4 [facility] Last Admin: 03/02/17 08:52 Dose: 4 mg Pantoprazole Sodium (Protonix Inj) 40 mg IVP BID [facility] Last Admin: 03/02/17 08:52 Dose: 40 mg Simethicone (Mylicon Chew Tab) 80 mg PO TID [facility] Last Admin: 03/02/17 08:55 Dose: Not Given - Labs Labs: 03/01/17 10:30 03/01/17 10:30
[2017-03-02] MEDS ORDERED: Dextrose 5%/0.9% NS 1,000 ML IV SCH (09:00)
--- NOTE | 2017-03-02 09:29 | CP.PCM.PN ---
<Mata Moeller - Last Filed: 03/02/17 15:06> Subjective - Date & Time of Evaluation Date of Evaluation: 03/02/17 Time of Evaluation: 09:27 - Subjective Subjective: Patient had NG tube placed yesterday, was dislodged. GI series ordered by surgical team Patient doing better this morning, seen walking around unit. Pain improved today, +flatus. follow up repeat imaging, Still NPO Objective - Vital Signs/Intake and Output Vital Signs (last 24 hours): Temp Pulse Resp BP Pulse Ox 98.5 F 82 17 120/77 100 03/02/17 08:04 03/02/17 09:00 03/02/17 08:04 03/02/17 08:52 03/02/17 08:04 Intake and Output: 03/02/17 03/02/17 06:59 18:59 Intake Total 600 Output Total 150 Balance 450 - Medications Medications: Current Medications Atorvastatin Calcium (Lipitor) 10 mg PO DAILY [facility] Last Admin: 03/02/17 08:55 Dose: Not Given Carvedilol (Coreg) 25 mg PO DAILY [facility] Last Admin: 03/02/17 08:52 Dose: 25 mg Cinacalcet (Sensipar) 60 mg PO DAILY [facility] Last Admin: 03/02/17 08:56 Dose: Not Given Clopidogrel Bisulfate (Plavix) 75 mg PO DAILY [facility] Last Admin: 03/02/17 08:55 Dose: Not Given Dicyclomine HCl (Bentyl) 10 mg PO TID [facility] Last Admin: 03/02/17 08:55 Dose: Not Given Docusate Sodium (Colace) 100 mg PO BID [facility] Last Admin: 03/02/17 08:55 Dose: Not Given Dextrose/Sodium Chloride (Dextrose 5%/0.9% Ns 1000 Ml) 1,000 mls @ 50 mls/hr IV .Q20H [facility] Stop: 03/03/17 08:49 Insulin Human Regular (Humulin R) 0 units SC ACHS [facility] PRN Reason: Protocol Last Admin: 03/02/17 06:47 Dose: Not Given Minoxidil (Loniten) 10 mg PO DAILY [facility] Last Admin: 03/02/17 08:55 Dose: Not Given Ondansetron HCl (Zofran Inj) 4 mg IVP Q4 [facility] Last Admin: 03/02/17 08:52 Dose: 4 mg Pantoprazole Sodium (Protonix Inj) 40 mg IVP BID [facility] Last Admin: 03/02/17 08:52 Dose: 40 mg Simethicone (Mylicon Chew Tab) 80 mg PO TID [facility] Last Admin: 03/02/17 08:55 Dose: Not Given - Labs Labs: 03/01/17 10:30 03/01/17 10:30 - Constitutional Appears: No Acute Distress - Head Exam Head Exam: NORMAL INSPECTION - Respiratory Exam Respiratory Exam: NORMAL BREATHING PATTERN - Cardiovascular Exam Cardiovascular Exam: REGULAR RHYTHM, +S1, +S2 - GI/Abdominal Exam GI & Abdominal Exam: Distended, Soft, Tenderness (mild), Diminished Bowel Sounds. absent: Guarding - Neurological Exam Neurological Exam: Alert, Awake, Normal Gait, Oriented x3 - Psychiatric Exam Psychiatric exam: Normal Affect, Normal Mood - Skin Skin Exam: Dry Assessment and Plan (1) Abdominal pain Assessment & Plan: 66 year old male with hx of ESRD on HD, HTN, HLD, IDDM presented with abdominal pain, labs revealed hyperkalemia, imaging with ileus vs obstruction Abdominal pain and distention, with PO intolerance. NG tube placed last night was dislodged. He is NPO, on IVF. Repeat abdominal imaging reviewed, requires more xr as per radiology. Patients pain improved after toradol followed by dilaudid. He endorses 2 small bowel movements, liquid. +Flatus. Surgery to reevaluate the patient. f/u further imaging. Status: Acute (2) Abdominal distention Status: Acute (3) Hyperkalemia Assessment & Plan: likely secondary to CKD, improved after dialysis, monitor Status: Acute (4) Insulin dependent diabetes mellitus Assessment & Plan: accuchecks sliding scale on d5 fluids, contributing to hyperglycemia. Status: Chronic (5) HTN (hypertension) Assessment & Plan: controlled Status: Chronic (6) End stage kidney disease Assessment & Plan: on hemodialysis management as per nephrology Status: Chronic (7) HIV (human immunodeficiency virus infection) Assessment & Plan: not on antiretroviral treatment Status: Chronic (8) Pancytopenia Assessment & Plan: anemia is ikely 2' to anemia of chronic disease, normocytic likely dilutional component, due to ivf leukopenia likely 2' to chronic HIV infection thrombocytopenia likely 2' to uremia due to CKD Status: Chronic <Glaser,Juanito L - Last Filed: 03/03/17 14:44> Subjective - Subjective Subjective: Pt seen and examined with Resident. Agree with Assessment and plan. Surgery reconsulted to reassess patient. Objective - Vital Signs/Intake and Output Vital Signs (last 24 hours): Temp Pulse Resp BP Pulse Ox 99.9 F H 104 H 29 H 95/43 L 99 03/03/17 12:00 03/03/17 14:00 03/03/17 14:00 03/03/17 14:00 03/03/17 10:00 Intake and Output: 03/03/17 03/03/17 06:59 18:59 Intake Total 1643 Balance 1643 - Medications Medications: Current Medications Atorvastatin Calcium (Lipitor) 10 mg PO DAILY [facility] Last Admin: 03/03/17 09:42 Dose: Not Given Benzocaine/Menthol (Cepacol Sore Throat) 1 issac PO Q2 PRN PRN Reason: Sore Throat Last Admin: 03/02/17 17:33 Dose: 1 issac Cinacalcet (Sensipar) 60 mg PO DAILY [facility] Last Admin: 03/03/17 09:44 Dose: Not Given Clopidogrel Bisulfate (Plavix) 75 mg PO DAILY [facility] Last Admin: 03/02/17 08:55 Dose: Not Given Heparin Sodium (Porcine) (Heparin) 5,000 units SC Q8 [facility] PRN Reason: Protocol Last Admin: 03/03/17 09:00 Dose: 5,000 units Hydrocortisone Sodium Succinate (Solu-Cortef) 50 mg IV Q6 [facility] Sodium Chloride (Sodium Chloride 0.9%) 1,000 mls @ 250 mls/hr IV .Q4H [facility] Stop: 03/04/17 05:15 Last Admin: 03/03/17 08:05 Dose: Not Given Norepinephrine Bitartrate 4 mg (/ Dextrose) 254 mls @ 9.52 mls/hr IV .Q24H [facility] ; 2.5 MCG/MIN PRN Reason: Protocol Last Admin: 03/03/17 13:45 Dose: 2.5 mcg/min, 9.52 mls/hr Phenylephrine HCl 10 mg/ (Sodium Chloride) 251 mls @ 30.12 mls/hr IV .Q8H20M [facility]; 20 MCG/MIN PRN Reason: Protocol Last Admin: 03/03/17 12:52 Dose: 20 mcg/min, 30.12 mls/hr Vasopressin 100 units/ Sodium (Chloride) 105 mls @ 1.89 mls/hr IV .Q24H [facility] PRN Reason: 0.03 UNITS/MIN Last Admin: 03/03/17 12:51 Dose: 1.89 mls/hr Piperacillin Sod/Tazobactam Sod (Zosyn 2.25 Gm Iv Premix) 2.25 gm in 50 mls @ 50 mls/hr IVPB Q6 [facility] PRN Reason: Protocol Insulin Human Regular (Humulin R) 0 units SC ACHS [facility] PRN Reason: Protocol Last Admin: 03/03/17 11:58 Dose: 2 u Ondansetron HCl (Zofran Inj) 4 mg IVP Q4 [facility] Last Admin: 03/03/17 09:45 Dose: Not Given Pantoprazole Sodium (Protonix Inj) 40 mg IVP BID [facility] Last Admin: 03/03/17 09:44 Dose: 40 mg Simethicone (Mylicon Chew Tab) 80 mg PO TID [facility] Last Admin: 03/03/17 09:42 Dose: Not Given - Labs Labs: 03/03/17 05:30 03/03/17 05:30 APTT 27.2 Seconds (25.6-37.1) 03/03/17 05:30 Assessment and Plan (1) Ileus Status: Acute (2) Partial intestinal obstruction Status: Acute (3) Diabetes mellitus type 2 in nonobese Status: Acute (4) Abdominal pain Status: Acute (5) End stage kidney disease Status: Chronic (6) Hyperkalemia Status: Acute (7) HIV (human immunodeficiency virus infection) Status: Chronic
[2017-03-02 09:55] LABS: ALB/GLOB RATIO 1.1 (1.0-2.1); BILIRUBIN,TOTAL 0.9 mg/dl (0.2-1.3); CALCIUM 8.9 mg/dL (8.4-10.2); POTASSIUM 5.3 MMOL/L (3.6-5.0); TOTAL PROTEIN 9.3 G/DL (6.3-8.2)
[2017-03-02] MEDS ORDERED: Diatriz Meglumine/Diatriz Sod 30 ML BOTTLE PO ONE (10:18)
--- NOTE | 2017-03-02 11:08 | RAD ---
HISTORY: NG tube placement. Portable study 10:55. COMPARISON: None. FINDINGS: LUNGS: No active pulmonary disease. PLEURA: No significant pleural effusion identified, no pneumothorax apparent. CARDIOVASCULAR: Cardiomegaly. No evidence of acute, significant cardiovascular disease. OSSEOUS STRUCTURES: No significant abnormalities. VISUALIZED UPPER ABDOMEN: Nasogastric tube courses through the esophagus into the stomach in satisfactory position. OTHER FINDINGS: None. IMPRESSION: Satisfactory position of recently placed nasogastric tube. No active pulmonary disease.
[2017-03-02] MEDS ORDERED: Lactated Ringer's 1,000 ML IV SCH ×2 (15:45→18:05)
[2017-03-02] MEDS ORDERED: Chlorhexidine Gluconate 1 APPL/PKT TP ONE ×2 (15:53→17:52)
--- NOTE | 2017-03-02 16:01 | PN ---
DATE: SUBJECTIVE: The patient sitting up out of bed, although he had abdominal pain overnight, required NG tube, which had been dislodged and removed. The patient is still complaining of a discomfort in the mid abdominal area. He is placed on n.p.o. and being followed up by the primary team. PHYSICAL EXAMINATION: GENERAL: The patient appeared to be comfortable. VITAL SIGNS: Blood pressure 120/77, pulse 82, temperature 98.5. NECK: Supple. CHEST: Clear. HEART: No rubs. ABDOMEN: Mild tenderness in the mid abdominal area. Bowel sounds were active. EXTREMITIES: No pitting edema. LABORATORY DATA: Showed hemoglobin 10.2, WBC 2.5. Creatinine 11.7 that was yesterday before dialysis. Potassium 5.7, again yesterday pre-dialysis. IMPRESSION: The patient with end-stage renal disease, who was admitted with abdominal pain, who remained to have some abdominal pain. He is on n.p.o. at the present and follow up by Surgery and Gastroenterology as well. The patient also has end-stage renal disease, dialysis as scheduled for tomorrow; Monday, Monday, Monday. In addition, human immunodeficiency virus as per Infectious Disease. The patient overall appeared to be stable. Miguel Conner MD
[2017-03-02] MEDS ORDERED: Benzocaine/Menthol (Cepacol) Lozenge PO PRN (16:12)
--- NOTE | 2017-03-02 17:18 | RAD ---
PROCEDURE: CHEST RADIOGRAPH, 1 VIEW HISTORY: NGT placement COMPARISON: Portable chest 03/01/2017. FINDINGS: The nasogastric tube is appears to have been replaced is coiled at the esophagogastric junction and returns up into the upper esophagus near the thoracic inlet where it terminates. Removal and replacement is advised follow-up by post procedure radiograph. LUNGS: Ueabs-[id number]-mrpi-left basilar atelectasis is favored over infiltrates. PLEURA: No pneumothorax or pleural fluid seen. CARDIOVASCULAR: Normal. OSSEOUS STRUCTURES: No significant abnormalities. VISUALIZED UPPER ABDOMEN: Normal. OTHER FINDINGS: None. IMPRESSION: Right greater than left basilar atelectasis is favored over infiltrates. No pneumothorax or pleural effusion appreciable. The nasogastric tube is been replaced which is coiled in the base of the esophagus and terminates at the upper esophagus near the thoracic inlet. Removal and replacement as advised follow-up by post procedure radiograph. Findings were discussed with Nurse Rita Barreto with written down and read back verification, 03/02/2017 5:13 p.m..
--- NOTE | 2017-03-02 18:53 | RAD ---
PROCEDURE: CHEST RADIOGRAPH, 1 VIEW. Technique: Single view portable semi erect @ 18:15. HISTORY: NGT re-placement COMPARISON: None available. FINDINGS: LUNGS: Clear. PLEURA: No pneumothorax or pleural fluid seen. CARDIOVASCULAR: Normal. OSSEOUS STRUCTURES: No significant abnormalities. VISUALIZED UPPER ABDOMEN: The nasogastric tube courses through the esophagus no longer appears to be quite old at the gastroesophageal junction. The course of the tube is marked as it appears in the stomach. OTHER FINDINGS: None. IMPRESSION: Nasogastric tube appears to be properly repositioned as described above and marked on the study.
--- NOTE | 2017-03-03 01:42 | CP.PCM.CON ---
History of Present Illness - History of Present Illness History of Present Illness: CC/Reason for transfer to ICU: Hypotension (Please see [facility] note for further details) Brief HPI: This is a 66 y/o male with MHx significant for CKD on HD, HIV, HTN, and DM2 who was admitted several days ago with abd pain and nausea after eating a meal at a restaurant. This evening, he was noted to be hypotensive, and O2 sat was noted to be low. SCISSORS GRINDER was called. Patient stated he was tired, but other morris comfortable. No c/c. PMD: Alfredito MHx/SHx: CKD/HD, HIV, HTN, DM2; fistula for HD access Allergies: NKDA Medications: Per medication list Family/Social Hx: No relevant findings to current condition Surrogate: SisterEmily Past Patient History - Infectious Disease Hx of Infectious Diseases: None - Tetanus Immunizations Tetanus Immunization: Unknown - Past Medical History & Family History Past Medical History?: Yes - Past Social History Alcohol: None Drugs: Denies - CARDIAC Hx Hypercholesterolemia: Yes Hx Hypertension: Yes Hx Peripheral Edema: Yes (in legs) - PULMONARY Hx Respiratory Disorders: No - NEUROLOGICAL Hx Neurological Disorder: No - HEENT Hx Cataracts: Yes (right eye) - RENAL Hx Chronic Kidney Disease: Yes Hx Kidney Stones: No - ENDOCRINE/METABOLIC Hx Endocrine Disorders: Yes Hx Diabetes Mellitus Type 2: Yes - HEMATOLOGICAL/ONCOLOGICAL Hx Anemia: Yes Hx Human Immunodeficiency Virus (HIV): Yes - INTEGUMENTARY Other/Comment: Hx abcess - MUSCULOSKELETAL/RHEUMATOLOGICAL Hx Fractures: Yes (FX. LEFT FOOT -CASTED ONLY) - GASTROINTESTINAL Hx Gastrointestinal Disorders: Yes Other/Comment: HX. ABD. HERNIA. HX. RIGHT INGUINAL HERNIA - GENITOURINARY/GYNECOLOGICAL Other/Comment: PT. STILL PASSES SOME URINE. - PSYCHIATRIC Hx Anxiety: No Hx Depression: No - SURGICAL HISTORY Hx Coronary Stent: Yes (X1) - ANESTHESIA Hx Anesthesia: Yes Hx Anesthesia Reactions: No Hx Malignant Hyperthermia: No Meds Allergies/Adverse Reactions: Allergies Allergy/AdvReac Type Severity Reaction Status Date / Time No Known Allergies Allergy Verified 10/18/16 13:16 - Medications Medications: Current Medications Atorvastatin Calcium (Lipitor) 10 mg PO DAILY [facility] Last Admin: 03/02/17 08:55 Dose: Not Given Benzocaine/Menthol (Cepacol Sore Throat) 1 issac PO Q2 PRN PRN Reason: Sore Throat Last Admin: 03/02/17 17:33 Dose: 1 issac Cinacalcet (Sensipar) 60 mg PO DAILY [facility] Last Admin: 03/02/17 08:56 Dose: Not Given Clopidogrel Bisulfate (Plavix) 75 mg PO DAILY [facility] Last Admin: 03/02/17 08:55 Dose: Not Given Dicyclomine HCl (Bentyl) 10 mg PO TID [facility] Last Admin: 03/02/17 17:31 Dose: Not Given Heparin Sodium (Porcine) (Heparin) 5,000 units SC Q8 [facility] PRN Reason: Protocol Last Admin: 03/02/17 17:25 Dose: Not Given Dextrose/Sodium Chloride (Dextrose 5%/0.9% Ns 1000 Ml) 1,000 mls @ 50 mls/hr IV .Q20H [facility] Stop: 03/03/17 08:49 Lactated Ringer's (Lactated Ringer's) 1,000 mls @ 90 mls/hr IV .Q11H7M [facility] Stop: 03/03/17 16:18 Last Admin: 03/02/17 19:41 Dose: Not Given Insulin Human Regular (Humulin R) 0 units SC ACHS [facility] PRN Reason: Protocol Last Admin: 03/02/17 22:16 Dose: Not Given Ondansetron HCl (Zofran Inj) 4 mg IVP Q4 [facility] Last Admin: 03/02/17 21:24 Dose: 4 mg Pantoprazole Sodium (Protonix Inj) 40 mg IVP BID [facility] Last Admin: 03/02/17 17:32 Dose: 40 mg Simethicone (Mylicon Chew Tab) 80 mg PO TID [facility] Last Admin: 03/02/17 17:32 Dose: Not Given Physical Exam - Constitutional Appears: No Acute Distress, Chronically Ill - Head Exam Head Exam: ATRAUMATIC, NORMOCEPHALIC - Eye Exam Eye Exam: EOMI - ENT Exam ENT Exam: Mucous Membranes Dry - Neck Exam Neck exam: Positive for: Full Rom - Respiratory Exam Respiratory Exam: Clear to Auscultation Bilateral, NORMAL BREATHING PATTERN - Cardiovascular Exam Cardiovascular Exam: Tachycardia, +S1, +S2 - GI/Abdominal Exam Additional comments: distended, scant sounds, NG tube in place - Extremities Exam Extremities exam: Positive for: full ROM, normal inspection - Neurological Exam Neurological exam: Alert, CN II-XII Intact, Oriented x3 - Psychiatric Exam Psychiatric exam: Normal Affect, Normal Mood - Skin Skin Exam: Dry, Warm Results - Vital Signs Recent Vital Signs: Last Vital Signs Temp 97.3 F L 03/03/17 00:21 Pulse 121 H 03/03/17 00:21 Resp 18 03/03/17 00:21 BP 83/57 L 03/03/17 00:21 Pulse Ox 98 03/03/17 00:21 - Labs Result Diagrams: 03/01/17 10:30 03/02/17 08:30 Labs: Laboratory Results - last 24 hr 03/02/17 03/02/17 03/02/17 05:13 08:30 12:16 Sodium 140 Potassium 5.3 H Chloride 97 L Carbon Dioxide 21 L Anion Gap 27 H BUN 68 H Creatinine 11.1 H* Est GFR ( Amer) 6 Est GFR (Non-Af Amer) 5 POC Glucose (mg/dL) 129 H 225 H Random Glucose 185 H Calcium 8.9 Total Bilirubin 0.9 AST 34 ALT 30 Alkaline Phosphatase 86 Total Protein 9.3 H Albumin 4.9 Globulin 4.5 H Albumin/Globulin Ratio 1.1 03/02/17 03/02/17 16:30 21:38 Sodium Potassium Chloride Carbon Dioxide Anion Gap BUN Creatinine Est GFR ( Amer) Est GFR (Non-Af Amer) POC Glucose (mg/dL) 197 H 154 H Random Glucose Calcium Total Bilirubin AST ALT Alkaline Phosphatase Total Protein Albumin Globulin Albumin/Globulin Ratio Assessment & Plan (1) Hypotension Assessment and Plan: 66 y/o male with multiple medical conditions who developed hypotension and tachycardia this evening on the floor. -Transfer to telemetry -Rehydrate carefully, will give small bolus now, and give 250 cc/hr x 2-3 hours with frequent reassesment of volume status and breathing status -Hold BP medications -- coreg, minoxidil; hold dilaudid IV -Obtain CMP, CBC, lactic acid, and cultures once patient's volume is better repleted -If evidence of infection or other decompensation, well cover with broad spec antibiotics Status: Acute (2) Tachycardia Status: Acute
[2017-03-03] MEDS ORDERED: Lactated Ringer's 250 ML IV SCH (01:45)
[2017-03-03] MEDS ORDERED: Lactated Ringer's 1,000 ML IV SCH (01:45)
[2017-03-03] MEDS: Sodium Chloride 0.9% 1,000 ML IV SCH ×2 (02:12→08:05)
[2017-03-03] MEDS ORDERED: Sodium Chloride 0.9% 250 ML IV SCH (02:15)
--- NOTE | 2017-03-03 02:27 | PCM.RRT ---
SHAGGER Nurse Assessment - Situation SHAGGER Responder Arrival Time: 01:10 SHAGGER Reason for Call: Hypotension - IV IV Inserted during SHAGGER?: No - Respiratory Oxygen Delivery Method: Room Air, Nasal Cannula (2L) - Medication Medications Administered During SHAGGER: LR @ 250 - Stat Labs Ordered SHAGGER Stat Labs Ordered: CBC, BMP, LACTIC ACID, BLOOD C&S X2 - Vital Signs Vital Signs: At start vitals: Afebrile, 97.3 BP 92/60 HR 119 O2 86 on RA RR 16 Subsequent vitals: BP 84/60--down to 76/53 HR 120 O2 92 ON 2L nC RR 20 - Reeder Coma Scale Coma Scale Eye Opening: Spontaneous Coma Scale Motor: Obeys Commands Movement Coma Scale Verbal: Oriented Coma Scale Total: 15 - Recommendations SHAGGER Level of Care Recommendations: Transfer to ICU I.Reason for SHAGGER - A) Acute Change in Patient: (Select all that apply): Staff member or family is worried about patient - Neurological Status (Select all that apply): Alert, Oriented, Verbal, Follows Commands - Respiratory Oxygen Delivery Method: Nasal Cannula @L/min (2L) - Constitutional Appears: No Acute Distress, Cachectic, Chronically Ill - Head Head Exam: ATRAUMATIC, NORMAL INSPECTION Additional Comments: NG tube in Place - Eyes Eye Exam: EOMI, Normal appearance - Respiratory Exam Respiratory Exam: Clear to Ausculation Bilateral - Cardiovascular Exam Cardiovascular Exam: REGULAR RHYTHM, +S1, +S2 - GI/Abdominal Exam GI & Abdominal Exam: Distended, Hypoactive Bowel Sounds - Neurological Exam Neurological Exam: Alert, Awake, Oriented x3 - Extremities Exam Extremities Exam: Full ROM, Normal Inspection Plan - Assessment of Findings&Treatment Plan 66 YO AA Male with PMH of ESRD on HD, HTN, HLD, IDDM, HIV is admitted for SBP. SHAGGER was called by RN for hypotension. Pt was found to have BP of 83/53 and tachycardia @ 121 by RN. SHAGGER was called at 1:10, SHAGGER team arrived promptly and Dr. Sullivan by bedside. Pt is asymptomatic, no chest pain, no dyspnea, AAO x 3. Pt started on LR @ 250ml/hr. Blood work was ordered including cbc, cmp, blood culture, Lactic acid, and 2L of O2 via NC. Imaging including chest x-ray and abdominal x-ray ordered. O2 status improved to 92% from 86%, and blood pressure continued to be low- dropping to 76/53. Pt transferred to ICU. Hypotension -continue fluids at 250ml/hr and reassess volume status every 2-3 hrs -blood work pending, follow up and add abx if needed -imaging pending -transfer pt to ICU
[2017-03-03] MEDS ORDERED: Lidocaine 1% Inj (20ml) ONE (04:22)
[2017-03-03] MEDS ORDERED: Vancomycin 1 g Inj IVPB STA (05:28)
--- NOTE | 2017-03-03 05:31 | PCM.PROC ---
Procedures Attestation:: I certify that I have explained the specified Operation(s) or Procedure(s), risks, benefits and reasonable alternatives to the Patient and/or other person responsible. The opportunity was given to ask questions and all questions answered - Central Line Placement Right Femoral Triple Lumen Catheter Aseptic technique was employed throughout the procedure: Hand Hygiene done prior to procedure, Full sterile barriers (mask, hair cover, sterile gown, sterile gloves), Full body sterile drape, Chloraprep Antiseptic: 2 minute prep for Femoral CVP Time Out Performed: Yes Pt. Placed on Pulse Ox Monitor: Yes Central Line Prep: Chlorhexidine-Alcohol Combination Local Anesthesia Used: Lidocaine 1% Ultrasound Used for Placement: No Central Line Lumen Inserted: triple Post Procedure: Sutured in Place, Good Blood Return, All Ports Aspirated, Flushed, Capped, Sterile Dressing Applied Secured by: Suture Post procedure dressing: Chlorhexidine disc (Biopatch) Post Procedure X-Ray: No Patient Tolerated Procedure: Well Immediate Complications: None
[2017-03-03 05:49] LABS: BASO % 0.5 % (0.0-2.0); EOS % 0.4 % (0.0-4.0); HEMATOCRIT 33.1 % (35.0-51.0); LYMPH # 0.7 K/uL (1.0-4.3); LYMPH % 25.5 % (20.0-40.0); MEAN CELL VOLUME 84.2 fl (80.0-94.0); MEAN CORPUSCULAR HEMOGLOBIN 26.6 pg (27.0-31.0); MEAN CORPUSCULAR HGB CONC 31.6 g/dL (33.0-37.0); MEAN PLATELET VOLUME 9.2 fl (7.2-11.7); MONO # 0.1 K/uL (0.0-0.8); MONO % 3.4 % (0.0-10.0); NEUT # 1.8 K/uL (1.8-7.0); NEUT % 70.2 % (50.0-75.0); RED CELL DISTRIBUTION WIDTH 16.4 % (11.5-14.5); WHITE BLOOD COUNT 2.6 K/uL (4.8-10.8)
[2017-03-03] MEDS ORDERED: Propofol 10 mg/ml 1,000 MG/100 ML VIAL ONE (06:01)
[2017-03-03 06:18] LABS: ALB/GLOB RATIO 1.1 (1.0-2.1); BILIRUBIN,TOTAL 0.8 mg/dl (0.2-1.3); CALCIUM 8.1 mg/dL (8.4-10.2); POTASSIUM 4.2 MMOL/L (3.6-5.0); TOTAL PROTEIN 7.7 G/DL (6.3-8.2)
[2017-03-03 06:31] LABS: ABG ALLEN TEST YES; ABG MECHANICAL RATE 12; ARTERIAL BLOOD GAS HCO3 18.9 mmol/L (21-28); ARTERIAL BLOOD GAS O2 CAPACITY 13.7 mL/dL (16-24); ARTERIAL BLOOD GAS PO2 78 mm/Hg (80-100); HHB 4.7 % (0.0-5.0); METHEMOGLOBIN 1.4 % (0.0-3.0)
--- NOTE | 2017-03-03 07:19 | PCM.PROC ---
Procedures Attestation:: I certify that I have explained the specified Operation(s) or Procedure(s), risks, benefits and reasonable alternatives to the Patient and/or other person responsible. The opportunity was given to ask questions and all questions answered - Arterial Line Right Femoral Aseptic technique was employed throughout the procedure: Hand Hygiene done prior to procedure, Full sterile barriers (mask, hair cover, sterile gown, sterile gloves), Full body sterile drape, Chloraprep Antiseptic: 2 minute prep for Femoral Time Out Performed: Yes Pt. placed on Pulse Ox Monitor: Yes Central Line Prep: Chlorhexidine-Alcohol Combination Local Anesthesia Used: Lidocaine 1% Amount of Anesthesia Used (mls): 3 Ultrasound Used for Placement: No Gauge (Size): 20 gauge (6 inch catheter) Technique Used: Guide Wire Technique Secured by: Suture Post procedure dressing: Chlorhexidine disc (Biopatch) Patient Tolerated Procedure: well Immediate Complications: none Additional Comments: for vasopressor titration, with inaccurate peripheral BP measurements, and frequent ABGs.
--- NOTE | 2017-03-03 07:54 | CP.PCM.PN ---
<Jaz Alvarez - Last Filed: 03/03/17 10:54> Subjective - Date & Time of Evaluation Date of Evaluation: 03/03/17 Time of Evaluation: 06:40 - Subjective Subjective: General Surgery Dr. Gottlieb Pt S&E @bedside. Overnight, pt became severely hypotensive. TRUCK RENTAL CLERK was called and pt was transferred to the ICU. In the ICU, pt went into asystole and was intubated. Pt had ROSC and started on Levophed and propofol. This morning, pt intubated on sedation vacation. Pt bryant to answer yes and no questions. Pt denies abd pain, N/V, F/C. Levo @10mcg. vent settings 12, 500, 0, 100% Sating 98% Objective - Vital Signs/Intake and Output Vital Signs (last 24 hours): Temp Pulse Resp BP Pulse Ox 98.6 F 111 H 25 H 83/57 L 93 L 03/03/17 05:00 03/03/17 05:00 03/03/17 05:00 03/03/17 05:00 03/03/17 05:00 - Medications Medications: Current Medications Atorvastatin Calcium (Lipitor) 10 mg PO DAILY [facility] Last Admin: 03/02/17 08:55 Dose: Not Given Benzocaine/Menthol (Cepacol Sore Throat) 1 issac PO Q2 PRN PRN Reason: Sore Throat Last Admin: 03/02/17 17:33 Dose: 1 issac Cinacalcet (Sensipar) 60 mg PO DAILY [facility] Last Admin: 03/02/17 08:56 Dose: Not Given Clopidogrel Bisulfate (Plavix) 75 mg PO DAILY [facility] Last Admin: 03/02/17 08:55 Dose: Not Given Dicyclomine HCl (Bentyl) 10 mg PO TID [facility] Last Admin: 03/02/17 17:31 Dose: Not Given Heparin Sodium (Porcine) (Heparin) 5,000 units SC Q8 [facility] PRN Reason: Protocol Last Admin: 03/03/17 02:11 Dose: 5,000 units Sodium Chloride (Sodium Chloride 0.9%) 1,000 mls @ 250 mls/hr IV .Q4H [facility] Stop: 03/04/17 05:15 Last Admin: 03/03/17 02:12 Dose: 250 mls/hr Norepinephrine Bitartrate 4 mg (/ Dextrose) 254 mls @ 9.52 mls/hr IV .Q24H [facility] ; 2.5 MCG/MIN PRN Reason: Protocol Piperacillin Sod/Tazobactam (Sod 2.25 gm/ Sodium Chloride) 100 mls @ 100 mls/ hr IVPB Q12 [facility] PRN Reason: Protocol Insulin Human Regular (Humulin R) 0 units SC ACHS [facility] PRN Reason: Protocol Last Admin: 03/02/17 22:16 Dose: Not Given Ondansetron HCl (Zofran Inj) 4 mg IVP Q4 [facility] Last Admin: 03/03/17 02:11 Dose: 4 mg Pantoprazole Sodium (Protonix Inj) 40 mg IVP BID [facility] Last Admin: 03/02/17 17:32 Dose: 40 mg Simethicone (Mylicon Chew Tab) 80 mg PO TID [facility] Last Admin: 03/02/17 17:32 Dose: Not Given - Labs Labs: 03/03/17 05:30 03/03/17 05:30 APTT 27.2 Seconds (25.6-37.1) 03/03/17 05:30 - Constitutional Appears: Non-toxic, No Acute Distress - Head Exam Head Exam: NORMAL INSPECTION - Eye Exam Eye Exam: Normal appearance - ENT Exam ENT Exam: Mucous Membranes Moist Additional comments: NGT in place ETT in place - Respiratory Exam Respiratory Exam: NORMAL BREATHING PATTERN (mechanical ventilation). absent: Accessory Muscle Use, Respiratory Distress - Cardiovascular Exam Cardiovascular Exam: Tachycardia, REGULAR RHYTHM - GI/Abdominal Exam GI & Abdominal Exam: Distended (moderate distention), Soft. absent: Firm, Guarding, Tenderness, Rebound - Extremities Exam Extremities Exam: Normal Inspection - Neurological Exam Neurological Exam: Alert, Awake, Oriented x3 - Psychiatric Exam Psychiatric exam: Normal Affect, Normal Mood - Skin Skin Exam: Dry, Intact, Normal Color, Warm Assessment and Plan - Assessment and Plan (Free Text) Assessment: 66 y/o M w/ SBO vs Ileus s/p asystole and ROSC - cont NGT to continuous suction - f/u AXR and small bowel series - serial abd exams - titrate pressers per ICU - vent weaning per Critical Care - no plans for surgery at this time. Pt seen and examined w/ Dr. Chery Alvarez DO PGY2 <Fuad Gottlieb - Last Filed: 03/03/17 11:09> Subjective - Date & Time of Evaluation Time of Evaluation: 10:35 - Subjective Subjective: Patient was seen and examined at the bedside. Agree with resident's note above. Objective - Vital Signs/Intake and Output Vital Signs (last 24 hours): Temp Pulse Resp BP Pulse Ox 98.7 F 108 H 35 H 86/41 L 99 03/03/17 08:00 03/03/17 10:00 03/03/17 10:00 03/03/17 10:00 03/03/17 10:00 Intake and Output: 03/03/17 03/03/17 06:59 18:59 Intake Total 554 Balance 554 - Medications Medications: Current Medications Atorvastatin Calcium (Lipitor) 10 mg PO DAILY [facility] Last Admin: 03/03/17 09:42 Dose: Not Given Benzocaine/Menthol (Cepacol Sore Throat) 1 issac PO Q2 PRN PRN Reason: Sore Throat Last Admin: 03/02/17 17:33 Dose: 1 issac Cinacalcet (Sensipar) 60 mg PO DAILY [facility] Last Admin: 03/03/17 09:44 Dose: Not Given Clopidogrel Bisulfate (Plavix) 75 mg PO DAILY [facility] Last Admin: 03/02/17 08:55 Dose: Not Given Dicyclomine HCl (Bentyl) 10 mg PO TID [facility] Last Admin: 03/03/17 09:40 Dose: Not Given Heparin Sodium (Porcine) (Heparin) 5,000 units SC Q8 [facility] PRN Reason: Protocol Last Admin: 03/03/17 02:11 Dose: 5,000 units Sodium Chloride (Sodium Chloride 0.9%) 1,000 mls @ 250 mls/hr IV .Q4H [facility] Stop: 03/04/17 05:15 Last Admin: 03/03/17 08:05 Dose: Not Given Norepinephrine Bitartrate 4 mg (/ Dextrose) 254 mls @ 9.52 mls/hr IV .Q24H [facility] ; 2.5 MCG/MIN PRN Reason: Protocol Last Admin: 03/03/17 09:41 Dose: 2.5 mcg/min, 9.52 mls/hr Piperacillin Sod/Tazobactam Sod (Zosyn 2.25 Gm Iv Premix) 2.25 gm in 50 mls @ 50 mls/hr IVPB Q12 [facility] PRN Reason: Protocol Last Admin: 03/03/17 09:46 Dose: 50 mls/hr Insulin Human Regular (Humulin R) 0 units SC ACHS [facility] PRN Reason: Protocol Last Admin: 03/03/17 08:47 Dose: Not Given Ondansetron HCl (Zofran Inj) 4 mg IVP Q4 [facility] Last Admin: 03/03/17 09:45 Dose: Not Given Pantoprazole Sodium (Protonix Inj) 40 mg IVP BID [facility] Last Admin: 03/03/17 09:44 Dose: 40 mg Simethicone (Mylicon Chew Tab) 80 mg PO TID [facility] Last Admin: 03/03/17 09:42 Dose: Not Given - Labs Labs: 03/03/17 05:30 03/03/17 05:30 APTT 27.2 Seconds (25.6-37.1) 03/03/17 05:30
[2017-03-03] MEDS: Insulin Regular 100 units/ml SC SCH ×2 (08:47→11:58)
[2017-03-03] MEDS ORDERED: Piperacill/Tazo 2.25gm in Dex 2.25 GM/50 ML BAG IVPB SCH ×2 (09:00→16:00)
[2017-03-03] MEDS ORDERED: Sodium Bicarbonate 7.5% (0.9 MEQ/ML) 50ML INJ IV ONE ×3 (09:00→15:45)
--- NOTE | 2017-03-03 09:28 | CP.PCM.PN ---
Subjective - Date & Time of Evaluation Date of Evaluation: 03/03/17 Time of Evaluation: 09:52 - Subjective Subjective: Overnight events: Patient became hypotensive, had cardiac arrest with ROSC, subsequently intubated by anesthesia. Pt seen and examined with Dr. Glaser. The case was discussed at length with the Surgical team Patients had femoral line placed this morning, BP readings SBP:70-80s despite treatment with Levophed and aggressive IVF. He is awake despite propofol drip, denies any dizziness or pain presently. His abdomen remains distended but soft, nontender, absent bowel sounds. Abdominal XR: Persistent moderate to severe dilatation of the small bowel loops with normal caliber colon and rectum concerning for mid to distal small bowel obstruction. As per pt's nurse he has had multiple liquid stools. Objective - Vital Signs/Intake and Output Vital Signs (last 24 hours): Temp Pulse Resp BP Pulse Ox 98.7 F 104 H 20 87/47 L 100 03/03/17 08:00 03/03/17 09:00 03/03/17 08:00 03/03/17 08:00 03/03/17 08:00 - Medications Medications: Current Medications Atorvastatin Calcium (Lipitor) 10 mg PO DAILY [facility] Last Admin: 03/02/17 08:55 Dose: Not Given Benzocaine/Menthol (Cepacol Sore Throat) 1 issac PO Q2 PRN PRN Reason: Sore Throat Last Admin: 03/02/17 17:33 Dose: 1 issac Cinacalcet (Sensipar) 60 mg PO DAILY [facility] Last Admin: 03/02/17 08:56 Dose: Not Given Clopidogrel Bisulfate (Plavix) 75 mg PO DAILY [facility] Last Admin: 03/02/17 08:55 Dose: Not Given Dicyclomine HCl (Bentyl) 10 mg PO TID [facility] Last Admin: 03/02/17 17:31 Dose: Not Given Heparin Sodium (Porcine) (Heparin) 5,000 units SC Q8 [facility] PRN Reason: Protocol Last Admin: 03/03/17 02:11 Dose: 5,000 units Sodium Chloride (Sodium Chloride 0.9%) 1,000 mls @ 250 mls/hr IV .Q4H [facility] Stop: 03/04/17 05:15 Last Admin: 03/03/17 08:05 Dose: Not Given Norepinephrine Bitartrate 4 mg (/ Dextrose) 254 mls @ 9.52 mls/hr IV .Q24H [facility] ; 2.5 MCG/MIN PRN Reason: Protocol Last Admin: 03/03/17 08:06 Dose: 2.5 mcg/min, 9.52 mls/hr Piperacillin Sod/Tazobactam Sod (Zosyn 2.25 Gm Iv Premix) 2.25 gm in 50 mls @ 50 mls/hr IVPB Q12 [facility] PRN Reason: Protocol Insulin Human Regular (Humulin R) 0 units SC ACHS [facility] PRN Reason: Protocol Last Admin: 03/03/17 08:47 Dose: Not Given Ondansetron HCl (Zofran Inj) 4 mg IVP Q4 [facility] Last Admin: 03/03/17 02:11 Dose: 4 mg Pantoprazole Sodium (Protonix Inj) 40 mg IVP BID [facility] Last Admin: 03/02/17 17:32 Dose: 40 mg Simethicone (Mylicon Chew Tab) 80 mg PO TID [facility] Last Admin: 03/02/17 17:32 Dose: Not Given - Labs Labs: 03/03/17 05:30 03/03/17 05:30 APTT 27.2 Seconds (25.6-37.1) 03/03/17 05:30 - Head Exam Head Exam: ATRAUMATIC, NORMAL INSPECTION, NORMOCEPHALIC - Eye Exam Eye Exam: Normal appearance - Respiratory Exam Respiratory Exam: Clear to Ausculation Bilateral. absent: Chest Wall Tenderness , Decreased Breath Sounds, Rales, Wheezes Additional comments: tachypneic, intubated, fio2 100%. - Cardiovascular Exam Cardiovascular Exam: +S1, +S2 Additional comments: tachycardic, HR 100s, regular, rate rhythm - GI/Abdominal Exam GI & Abdominal Exam: Distended (absent bowel sounds). absent: Firm, Rigid, Tenderness, Rebound - Rectal Exam Rectal Exam: Deferred - Neurological Exam Neurological Exam: Alert, Awake - Skin Skin Exam: Dry, Intact Assessment and Plan (1) Septic shock Assessment & Plan: 66 year old male with hx of ESRD on HD, HTN, HLD, IDDM presented with abdominal pain, labs revealed hyperkalemia, imaging with ileus vs obstruction Patient has bee passing flatus during the admission. He had small bowel movement yesterday. He did have pain early yesterday afternoon and was reassessed by surgical team. He had NG tube placed. Overnight the patient became hypotensive and had cardiac arrest with ROSC, he was intubated by anesthesiology. At this time the patient remains hypotensive despite aggressive IVF and vasopressors. Patient is hemodynamically unstable at this time, and has been reevaluated by surgical team multiple times. Not deemed to be a candidate for surgical intervention at this time. He had what appeared to be bowel obstruction vs ileus, however the patients abdominal pain and distention may be due to intestinal ischemia. He has been having liquid bowel movements today. All available labs and imaging reviewed. Lactate level trending up, currently 10.2 Continue with aggressive IVF and vasopressors. Patient is now unresponsive. Consults: ID, Nephrology, Surgery Case discussed with upholstery repairer at length. Case discussed with Dr. Glaser. Status: Acute (2) Abdominal pain Status: Acute (3) Abdominal distention Status: Acute (4) Hyperkalemia Status: Acute (5) Insulin dependent diabetes mellitus Status: Chronic (6) HTN (hypertension) Assessment & Plan: pt is hypotensive on pressors d/c all medications for HTN Status: Chronic (7) End stage kidney disease Status: Chronic (8) HIV (human immunodeficiency virus infection) Status: Chronic (9) Pancytopenia Assessment & Plan: thrombocytopenia resolved, anemia and leukopenia persist Status: Chronic
[2017-03-03] MEDS: Simethicone 80 mg Chewtab PO SCH (09:42)
[2017-03-03] MEDS: Cinacalcet 60 MG TAB PO SCH (09:44)
[2017-03-03 10:18] VITALS: O2SAT 99
--- NOTE | 2017-03-03 10:49 | RAD ---
HISTORY: hypotnesion, bowel obstr COMPARISON: Small-bowel series from 03/01/2017. FINDINGS: BOWEL: The nasogastric tube terminates in the stomach. There is redemonstration of moderate to severe dilatation of the small bowel loops. Contrast material is identified in the hepatic flexure of colon and rectum which are normal caliber. There are also presumable decompressed small bowel loops in the pelvis. BONES: Normal. OTHER FINDINGS: None. IMPRESSION: Persistent moderate to severe dilatation of the small bowel loops with normal caliber colon and rectum concerning for mid to distal small bowel obstruction.
--- NOTE | 2017-03-03 10:53 | RAD ---
PROCEDURE: CHEST RADIOGRAPH, 1 VIEW HISTORY: hypotension COMPARISON: 03/02/2017. FINDINGS: The endotracheal tube terminates 4.3 cm proximal to the kassy. The nasogastric tube terminates in the stomach. There is stable appearance of a left axillary endovascular stent graft. LUNGS: The lungs are well inflated. There is redemonstration of moderate pulmonary venous congestion and mild interstitial pulmonary edema. There is interval development of haziness in the right lower lobe and left mid and lower lungs. PLEURA: There is a small left pleural effusion. No pneumothorax. CARDIOVASCULAR: The cardiomediastinal silhouette is stable. OSSEOUS STRUCTURES: No significant abnormalities. VISUALIZED UPPER ABDOMEN: Normal. OTHER FINDINGS: None. IMPRESSION: Question of developing pulmonary edema in the right lower lobe and left mid and lower lungs versus layering pleural effusions, worsening pulmonary venous congestion and mild interstitial pulmonary edema.
[2017-03-03 10:59] LABS: ABG ALLEN TEST YES; ABG MECHANICAL RATE 12; ARTERIAL BLOOD GAS HCO3 16.5 mmol/L (21-28); ARTERIAL BLOOD GAS MODE PRVC/AC; ARTERIAL BLOOD GAS PH 7.32 (7.35-7.45); ARTERIAL BLOOD GAS PO2 91 mm/Hg (80-100)
[2017-03-03] MEDS ORDERED: Fentanyl Citrate 2,500 MCG in Dextrose 5% In Water 200 ML IV SCH (11:30)
[2017-03-03] MEDS ORDERED: Hydrocortisone- 50 MG in Sodium Chloride 0.9% 100 ML IV SCH (12:15)
[2017-03-03] MEDS ORDERED: Phenylephrine 10 mg/ml Inj ONE (12:23)
[2017-03-03 12:24] LABS: VENOUS BLOOD GAS BASE EXCESS -15.5 mmol/L (0.0-2.0); VENOUS BLOOD GAS MODE PRVC/AC; VENOUS BLOOD GAS PCO2 37 mmHg (40-60); VENOUS BLOOD PH 7.14 (7.32-7.43)
[2017-03-03 12:26] VITALS: TEMP 99.9
[2017-03-03 12:50] LABS: ABG ALLEN TEST YES; ABG MECHANICAL RATE 10; ARTERIAL BLOOD GAS HCO3 11.9 mmol/L (21-28); ARTERIAL BLOOD GAS MODE PRVC/AC; ARTERIAL BLOOD GAS PO2 74 mm/Hg (80-100)
--- NOTE | 2017-03-03 12:51 | CP.PCM.PN ---
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 now hypotensive on pressors IV antibiotics in progress surgical team evaluationg for OR Objective - Vital Signs/Intake and Output Vital Signs (last 24 hours): Temp Pulse Resp BP Pulse Ox 99.9 F H 87 14 54/20 L 99 03/03/17 12:00 03/03/17 12:00 03/03/17 12:00 03/03/17 12:00 03/03/17 10:00 Intake and Output: 03/03/17 03/03/17 06:59 18:59 Intake Total 904 Balance 904 - Medications Medications: Current Medications Atorvastatin Calcium (Lipitor) 10 mg PO DAILY [facility] Last Admin: 03/03/17 09:42 Dose: Not Given Benzocaine/Menthol (Cepacol Sore Throat) 1 issac PO Q2 PRN PRN Reason: Sore Throat Last Admin: 03/02/17 17:33 Dose: 1 issac Cinacalcet (Sensipar) 60 mg PO DAILY [facility] Last Admin: 03/03/17 09:44 Dose: Not Given Clopidogrel Bisulfate (Plavix) 75 mg PO DAILY [facility] Last Admin: 03/02/17 08:55 Dose: Not Given Heparin Sodium (Porcine) (Heparin) 5,000 units SC Q8 [facility] PRN Reason: Protocol Last Admin: 03/03/17 09:00 Dose: 5,000 units Hydrocortisone Sodium Succinate (Solu-Cortef) 50 mg IV Q6 [facility] Sodium Chloride (Sodium Chloride 0.9%) 1,000 mls @ 250 mls/hr IV .Q4H [facility] Stop: 03/04/17 05:15 Last Admin: 03/03/17 08:05 Dose: Not Given Norepinephrine Bitartrate 4 mg (/ Dextrose) 254 mls @ 9.52 mls/hr IV .Q24H [facility] ; 2.5 MCG/MIN PRN Reason: Protocol Last Admin: 03/03/17 09:41 Dose: 2.5 mcg/min, 9.52 mls/hr Piperacillin Sod/Tazobactam Sod (Zosyn 2.25 Gm Iv Premix) 2.25 gm in 50 mls @ 50 mls/hr IVPB Q12 [facility] PRN Reason: Protocol Last Admin: 03/03/17 09:46 Dose: 50 mls/hr Phenylephrine HCl 10 mg/ (Sodium Chloride) 251 mls @ 30.12 mls/hr IV .Q8H20M [facility]ING; 20 MCG/MIN PRN Reason: Protocol Vasopressin 100 units/ Sodium (Chloride) 105 mls @ 1.89 mls/hr IV .Q24H [facility] PRN Reason: 0.03 UNITS/MIN Insulin Human Regular (Humulin R) 0 units SC ACHS [facility] PRN Reason: Protocol Last Admin: 03/03/17 11:58 Dose: 2 u Ondansetron HCl (Zofran Inj) 4 mg IVP Q4 [facility] Last Admin: 03/03/17 09:45 Dose: Not Given Pantoprazole Sodium (Protonix Inj) 40 mg IVP BID [facility] Last Admin: 03/03/17 09:44 Dose: 40 mg Simethicone (Mylicon Chew Tab) 80 mg PO TID [facility] Last Admin: 03/03/17 09:42 Dose: Not Given - Labs Labs: 03/03/17 05:30 03/03/17 05:30 APTT 27.2 Seconds (25.6-37.1) 03/03/17 05:30 - Head Exam Head Exam: NORMOCEPHALIC Additional comments: INTUBATED - Eye Exam Eye Exam: PERRL - ENT Exam ENT Exam: Mucous Membranes Dry - Neck Exam Neck Exam: absent: Lymphadenopathy - Respiratory Exam Respiratory Exam: Decreased Breath Sounds - Cardiovascular Exam Cardiovascular Exam: REGULAR RHYTHM - GI/Abdominal Exam GI & Abdominal Exam: Distended, Soft, Hypoactive Bowel Sounds - Rectal Exam Rectal Exam: Deferred - Exam Exam: NORMAL INSPECTION - Extremities Exam Extremities Exam: absent: Pedal Edema - Back Exam Back Exam: absent: CVA tenderness (L), CVA tenderness (R) - Neurological Exam Neurological Exam: Altered Assessment and Plan (1) CAD (coronary artery disease) Status: Acute (2) CAD (coronary artery disease) Status: Acute (3) Abdominal pain Status: Acute (4) Diabetes mellitus type 2 in nonobese Status: Acute (5) Ileus Status: Acute (6) Partial intestinal obstruction Status: Acute (7) End stage kidney disease Status: Chronic (8) HTN (hypertension) Status: Chronic (9) Insulin dependent diabetes mellitus Status: Chronic (10) Hepatitis C infection Status: Acute (11) HIV (human immunodeficiency virus infection) Status: Chronic - Assessment and Plan (Free Text) Assessment: likely has ischemic bowel severe hypotension and metabolic acidosis poor prognosis possible surgical intervention
[2017-03-03] MEDS ORDERED: Albuterol 0.083% Inhal Sol (2.5 mg/3 mL) UD INH ONE (13:02)
[2017-03-03] MEDS ORDERED: Dextrose 50% SYRINGE Inj (50 ml) IVP ONE (13:03)
[2017-03-03] MEDS ORDERED: Insulin Regular 100 units/ml SC ONE (13:03)
[2017-03-03] MEDS ORDERED: Calcium Gluconate 4.65 mEq/10 ml Inj IV ONE (13:05)
[2017-03-03] MEDS ORDERED: Albuterol 0.083% Inhal Sol (2.5 mg/3 mL) UD ONE (13:09)
[2017-03-03] MEDS ORDERED: Gentamicin 80mg/50ml NS 80 MG/50 ML BAG IVPB ONE (13:15)
[2017-03-03 14:11] VITALS: BP 95/43; PULSE 104; RESP 29
--- NOTE | 2017-03-03 15:06 | CP.PCM.PN ---
Subjective - Date & Time of Evaluation Date of Evaluation: 03/03/17 Time of Evaluation: 15:02 - Subjective Subjective: Patient transferred to intensive care unit after he became hypotensive and code was called and resuscitated. Patient unresponsive and hypotensive on vasopressors. Physical exam Unresponsive Chest few rhonchi Heart no rubs Abdomen distended Extremity no edema Impression and plan Patient may be developing septic shock was hypotensive and lactic acidosis. And hyperkalemic and metabolic acidosis. Rule out acute abdomen with intra-abdominal severe pathology causing this lactic acidosis and sepsis Hemodialysis was put on hold this morning however because of the acidosis and his condition we will try to do short hemodialysis and the patient on vasopressors prognosis is very poor. I discussed the case with the mold tooler to keep eye on the patient and determine a dialysis if not tolerating. Other issue HIV Antibiotics as noted by ID Objective - Vital Signs/Intake and Output Vital Signs (last 24 hours): Temp Pulse Resp BP Pulse Ox 99.9 F H 104 H 29 H 95/43 L 99 03/03/17 12:00 03/03/17 14:00 03/03/17 14:00 03/03/17 14:00 03/03/17 10:00 Intake and Output: 03/03/17 03/03/17 06:59 18:59 Intake Total 1643 Balance 1643 - Medications Medications: Current Medications Atorvastatin Calcium (Lipitor) 10 mg PO DAILY [facility] Last Admin: 03/03/17 09:42 Dose: Not Given Benzocaine/Menthol (Cepacol Sore Throat) 1 issac PO Q2 PRN PRN Reason: Sore Throat Last Admin: 03/02/17 17:33 Dose: 1 issac Cinacalcet (Sensipar) 60 mg PO DAILY [facility] Last Admin: 03/03/17 09:44 Dose: Not Given Clopidogrel Bisulfate (Plavix) 75 mg PO DAILY [facility] Last Admin: 03/02/17 08:55 Dose: Not Given Heparin Sodium (Porcine) (Heparin) 5,000 units SC Q8 [facility] PRN Reason: Protocol Last Admin: 03/03/17 09:00 Dose: 5,000 units Hydrocortisone Sodium Succinate (Solu-Cortef) 50 mg IV Q6 [facility] Sodium Chloride (Sodium Chloride 0.9%) 1,000 mls @ 250 mls/hr IV .Q4H [facility] Stop: 03/04/17 05:15 Last Admin: 03/03/17 08:05 Dose: Not Given Norepinephrine Bitartrate 4 mg (/ Dextrose) 254 mls @ 9.52 mls/hr IV .Q24H [facility] ; 2.5 MCG/MIN PRN Reason: Protocol Last Admin: 03/03/17 13:45 Dose: 2.5 mcg/min, 9.52 mls/hr Phenylephrine HCl 10 mg/ (Sodium Chloride) 251 mls @ 30.12 mls/hr IV .Q8H20M [facility]; 20 MCG/MIN PRN Reason: Protocol Last Admin: 03/03/17 12:52 Dose: 20 mcg/min, 30.12 mls/hr Vasopressin 100 units/ Sodium (Chloride) 105 mls @ 1.89 mls/hr IV .Q24H [facility] PRN Reason: 0.03 UNITS/MIN Last Admin: 03/03/17 12:51 Dose: 1.89 mls/hr Piperacillin Sod/Tazobactam Sod (Zosyn 2.25 Gm Iv Premix) 2.25 gm in 50 mls @ 50 mls/hr IVPB Q6 [facility] PRN Reason: Protocol Insulin Human Regular (Humulin R) 0 units SC ACHS [facility] PRN Reason: Protocol Last Admin: 03/03/17 11:58 Dose: 2 u Ondansetron HCl (Zofran Inj) 4 mg IVP Q4 [facility] Last Admin: 03/03/17 09:45 Dose: Not Given Pantoprazole Sodium (Protonix Inj) 40 mg IVP BID [facility] Last Admin: 03/03/17 09:44 Dose: 40 mg Simethicone (Mylicon Chew Tab) 80 mg PO TID [facility] Last Admin: 03/03/17 09:42 Dose: Not Given - Labs Labs: 03/03/17 05:30 03/03/17 05:30 APTT 27.2 Seconds (25.6-37.1) 03/03/17 05:30
--- NOTE | 2017-03-03 15:17 | CP.CCUPN ---
CCU Subjective - Physician Review Subjective (Free Text): Interim events overnight reviewed and discussed with Night Hospitalist covering ICU: patient transferred to ICU for shock state unresponsive to IVFs and had brief cardiac arrest, successfully resuscitated, orally intubated, on 100% oxygen with ABGs reflective of severe A-a gradient, acidosis and increasing lactate levels. Most obvious source is abdomen, and discussed with Surgical team. Patient deemed a very poor candidate given present moribund state with refractory shock on multiple vasopressors. Sedatives and anxiolytics stopped due to hypotension, and now he is unresponsive with SBP 45-55. Today is his usual HD day, and may poorly tolerate HD given shock state. Discussed with Nephrology. Interim treatment given for hyperkalemia with multiple Albuterol nebs, as well as Calcium, D50W, Insulin and sodium bicarbonate. Abdominal findings notable for increasing distension, has been on NGT suction. He did have BMs this AM. Other vitals and I/O's reviewed. ALLERGIES: NKDA ROS: Unobtainable due to altered mental status and intubation. No other pertinent negs or positives on 10+ system review. PMSFH: All other Nursing and physician documentation reviewed to date; no new pertinent info noted relevant to current medical problems. CXR: ETT position ok above kassy, bibasilar Left worse than R sided interstitial changes. IMPRESSION / MAJOR PROBLEMS NOW: 1. Septic Shock due to suspected Ischemic Bowel disease w/o Perforation 2. s/p SBO 3. ESRD on HD 4. Chronic Disease Anemia 5. HIV Disease PLAN: 1. Full aggressive resuscitation and support measures, Arterial line placed this AM to facilitate BP wans and adjustments while on multiple vasopressos. 2. Serial Lactates, Procalcitonin level. 3. Doubt any Cardiogenic shock etiology or massive PTE event causing this current level of hypotension. 4. Empiric abx coverage. On Vanco and Zosyn, adjusted to ESRD dosing. 5. Moribund appearance now, nephanthony Sow notified. 6. Surgical f/u appreciated. CCU Objective - Vital Signs / Intake & Output Vital Signs (Last 4 hours): Vital Signs Temp Pulse Resp BP 03/03/17 14:00 104 H 29 H 95/43 L 03/03/17 12:51 50/19 L 03/03/17 12:00 99.9 F H 87 14 54/20 L Intake and Output (Last 8hrs): Intake & Output 03/03/17 03/03/17 03/03/17 06:59 14:59 22:59 Intake Total 1643 Balance 1643 Intake: IV 1293 Intake, Piggyback 350 Oral 0 Other: # Bowel Movements 3 - Physical Exam Physical Exam Limitations: Positive for: Altered Mental Status Head: Positive for: Normocephalic Pupils: Positive for: PERRL Extroacular Muscles: Positive for: EOMI Mouth: Positive for: Dry Neck: Positive for: Meningeal Signs. Negative for: JVD, Lymphadenopathy Respiratory/Chest: Positive for: Clear to Auscultation. Negative for: Accessory Muscle Use, Wheezes Cardiovascular: Positive for: Regular Rate and Rhythm, Tachycardic. Negative for: Murmurs, Rub Abdomen: Positive for: Distention, Other (absent bowel sounds, no palpable tenderness, no guarding). Negative for: Tenderness, Mass/Organomegaly Lower Extremity: Positive for: NORMAL PULSES. Negative for: Edema, CALF TENDERNESS, Cyanosis Neurological: Positive for: GCS=15, Motor Func Grossly Intact, Normal Sensory Function Skin: Positive for: Warm, Dry. Negative for: Rashes - Medications Active Medications: Active Medications Generic Name Dose Route Start Last Admin Trade Name Freq PRN Reason Stop Dose Admin Atorvastatin Calcium 10 mg 02/28/17 10:45 03/03/17 09:42 Lipitor PO Not Given DAILY [facility] Benzocaine/Menthol 1 issac 03/02/17 16:12 03/02/17 17:33 Cepacol Sore Throat PO 1 issac Q2 PRN Administration Sore Throat Cinacalcet 60 mg 02/28/17 10:45 03/03/17 09:44 Sensipar PO Not Given DAILY [facility] Clopidogrel Bisulfate 75 mg 02/28/17 10:45 03/02/17 08:55 Plavix PO Not Given DAILY [facility] Heparin Sodium (Porcine) 5,000 units 03/02/17 17:00 03/03/17 09:00 Heparin SC 5,000 units Q8 [facility] Administration Protocol Hydrocortisone Sodium Succinate 50 mg 03/03/17 16:00 Solu-Cortef IV Q6 [facility] Sodium Chloride 1,000 mls @ 250 mls/hr 03/03/17 02:15 03/03/17 08:05 Sodium Chloride 0.9% IV 03/04/17 05:15 Not Given .Q4H QING Norepinephrine Bitartrate 4 mg 254 mls @ 9.52 mls/hr 03/03/17 05:30 03/03/17 13:45 / Dextrose IV 2.5 mcg/min .Q24H QING 9.52 mls/hr Protocol Administration 2.5 MCG/MIN Phenylephrine HCl 10 mg/ 251 mls @ 30.12 mls/hr 03/03/17 12:15 03/03/17 12:52 Sodium Chloride IV 20 mcg/min .Q8H20M QING 30.12 mls/hr Protocol Administration 20 MCG/MIN Vasopressin 100 units/ Sodium 105 mls @ 1.89 mls/hr 03/03/17 12:15 03/03/17 12:51 Chloride IV 1.89 mls/hr .Q24H QING Administration 0.03 UNITS/MIN Piperacillin Sod/Tazobactam Sod 2.25 gm in 50 mls @ 50 mls/hr 03/03/17 16:00 Zosyn 2.25 Gm Iv Premix IVPB Q6 [facility] Protocol Insulin Human Regular 0 units 02/26/17 22:00 03/03/17 11:58 Humulin R SC 2 u ACHS QING Administration Protocol Ondansetron HCl 4 mg 03/02/17 09:00 03/03/17 09:45 Zofran Inj IVP Not Given Q4 [facility] Pantoprazole Sodium 40 mg 03/02/17 09:00 03/03/17 09:44 Protonix Inj IVP 40 mg BID [facility]ING Administration Simethicone 80 mg 02/28/17 09:15 03/03/17 09:42 Mylicon Chew Tab PO Not Given TID [facility] - Patient Studies Lab Studies: Lab Studies 03/03/17 03/03/17 03/03/17 Range/Units 12:41 11:10 11:10 WBC (4.8-10.8) K/uL RBC (4.40-5.90) Mil/uL Hgb (12.0-18.0) g/dL Hct (35.0-51.0) % MCV (80.0-94.0) fl MCH (27.0-31.0) pg MCHC (33.0-37.0) g/dL RDW (11.5-14.5) % Plt Count (130-400) K/uL MPV (7.2-11.7) fl Neut % (Auto) (50.0-75.0) % Lymph % (Auto) (20.0-40.0) % Scurry % (Auto) (0.0-10.0) % Eos % (Auto) (0.0-4.0) % Baso % (Auto) (0.0-2.0) % Neut # (1.8-7.0) K/uL Lymph # (1.0-4.3) K/uL Scurry # (0.0-0.8) K/uL Eos # (0.0-0.7) K/uL Baso # (0.0-0.2) K/uL APTT (25.6-37.1) Seconds pCO2 39 (35-45) mm/Hg pO2 74 L (80-100) mm/Hg HCO3 11.9 L (21-28) mmol/L ABG pH 7.10 L* (7.35-7.45) ABG Total CO2 13.3 L (22-28) mmol/L ABG O2 Saturation 91.9 L (95-98) % ABG O2 Content (15-23) ML/dL ABG Base Excess -16.6 L (-2.0-3.0) mmol/L ABG Hemoglobin (11.7-17.4) g/dL ABG Carboxyhemoglobin (0.5-1.5) % POC ABG HHb (Measured) (0.0-5.0) % ABG Methemoglobin (0.0-3.0) % ABG O2 Capacity (16-24) mL/dL Richard Test Yes ABG Potassium 5.5 H (3.6-5.2) mmol/L VBG pH (7.32-7.43) VBG pCO2 (40-60) mmHg VBG HCO3 mmol/L VBG Total CO2 (22-28) mmol/L VBG O2 Sat (Calc) (40-65) % VBG Base Excess (0.0-2.0) mmol/L VBG Potassium (3.6-5.2) mmol/L A-a O2 Difference 590.0 mm/Hg Hgb O2 Saturation (95.0-98.0) % Glucose 146 H (75-110) mg/dL Lactate 10.2 H* (0.7-2.1) mmol/L Vent Mode Prvc/ac Mechanical Rate 10 FiO2 100.0 % Tidal Volume 500 PEEP Blood Gas Comments Prvc/ac10/vt500/100% Crit Value Called To Dr. migue ricks m.d. Crit Value Called By Camila Crit Value Read Back Y Blood Gas Notified Time 1250 Sodium 139.0 (132-148) mmol/l Potassium (3.6-5.0) MMOL/L Chloride 103.0 (98-107) mmol/L Carbon Dioxide (22-30) mmol/L Anion Gap (10-20) BUN (9-20) mg/dl Creatinine (0.8-1.5) mg/dl Est GFR ( Amer) Est GFR (Non-Af Amer) POC Glucose (mg/dL) 173 H (65-110) mg/dL Random Glucose (75-110) mg/dL Lactic Acid (0.7-2.1) MMOL/L Calcium (8.4-10.2) mg/dL Total Bilirubin (0.2-1.3) mg/dl AST (17-59) U/L ALT (21-72) U/L Alkaline Phosphatase (38-126) U/L Troponin I 0.0900 (0.00-0.120) ng/mL Total Protein (6.3-8.2) G/DL Albumin (3.5-5.0) g/dL Globulin (2.2-3.9) gm/dL Albumin/Globulin Ratio (1.0-2.1) Arterial Blood Potassium 5.5 H (3.6-5.2) mmol/L Venous Blood Potassium (3.6-5.2) mmol/L 03/03/17 03/03/17 03/03/17 Range/Units 11:10 11:09 10:52 WBC (4.8-10.8) K/uL RBC (4.40-5.90) Mil/uL Hgb (12.0-18.0) g/dL Hct (35.0-51.0) % MCV (80.0-94.0) fl MCH (27.0-31.0) pg MCHC (33.0-37.0) g/dL RDW (11.5-14.5) % Plt Count (130-400) K/uL MPV (7.2-11.7) fl Neut % (Auto) (50.0-75.0) % Lymph % (Auto) (20.0-40.0) % Scurry % (Auto) (0.0-10.0) % Eos % (Auto) (0.0-4.0) % Baso % (Auto) (0.0-2.0) % Neut # (1.8-7.0) K/uL Lymph # (1.0-4.3) K/uL Scurry # (0.0-0.8) K/uL Eos # (0.0-0.7) K/uL Baso # (0.0-0.2) K/uL APTT (25.6-37.1) Seconds pCO2 27 L (35-45) mm/Hg pO2 63 H 91 (80-100) mm/Hg HCO3 16.5 L (21-28) mmol/L ABG pH 7.32 L (7.35-7.45) ABG Total CO2 14.7 L (22-28) mmol/L ABG O2 Saturation 97.2 (95-98) % ABG O2 Content (15-23) ML/dL ABG Base Excess -10.7 L (-2.0-3.0) mmol/L ABG Hemoglobin (11.7-17.4) g/dL ABG Carboxyhemoglobin (0.5-1.5) % POC ABG HHb (Measured) (0.0-5.0) % ABG Methemoglobin (0.0-3.0) % ABG O2 Capacity (16-24) mL/dL Richard Test Yes ABG Potassium 4.6 (3.6-5.2) mmol/L VBG pH 7.14 L* (7.32-7.43) VBG pCO2 37 L (40-60) mmHg VBG HCO3 12.6 mmol/L VBG Total CO2 13.7 L (22-28) mmol/L VBG O2 Sat (Calc) 89.8 H (40-65) % VBG Base Excess -15.5 L (0.0-2.0) mmol/L VBG Potassium 5.3 H (3.6-5.2) mmol/L A-a O2 Difference 588.0 mm/Hg Hgb O2 Saturation (95.0-98.0) % Glucose 162 H 202 H (75-110) mg/dL Lactate 9.0 H* 5.0 H* (0.7-2.1) mmol/L Vent Mode Prvc/ac Mechanical Rate 12 FiO2 100.0 100.0 % Tidal Volume 500 PEEP 5 Blood Gas Comments Prvc/ac10/vt500/100%/+5peep Prvc/ac12/vt500/100% Crit Value Called To Dr migue ricks m.d. Crit Value Called By Camila Jensen Crit Value Read Back Y Y Blood Gas Notified Time 1223 1059 Sodium 140.0 140.0 (132-148) mmol/l Potassium (3.6-5.0) MMOL/L Chloride 103.0 104.0 (98-107) mmol/L Carbon Dioxide (22-30) mmol/L Anion Gap (10-20) BUN (9-20) mg/dl Creatinine (0.8-1.5) mg/dl Est GFR ( Amer) Est GFR (Non-Af Amer) POC Glucose (mg/dL) (65-110) mg/dL Random Glucose (75-110) mg/dL Lactic Acid 4.8 H* (0.7-2.1) MMOL/L Calcium (8.4-10.2) mg/dL Total Bilirubin (0.2-1.3) mg/dl AST (17-59) U/L ALT (21-72) U/L Alkaline Phosphatase (38-126) U/L Troponin I (0.00-0.120) ng/mL Total Protein (6.3-8.2) G/DL Albumin (3.5-5.0) g/dL Globulin (2.2-3.9) gm/dL Albumin/Globulin Ratio (1.0-2.1) Arterial Blood Potassium 4.6 (3.6-5.2) mmol/L Venous Blood Potassium 5.3 H (3.6-5.2) mmol/L 03/03/17 03/03/17 03/03/17 Range/Units 05:30 05:30 05:30 WBC 2.6 L (4.8-10.8) K/uL RBC 3.93 L (4.40-5.90) Mil/uL Hgb 10.5 L (12.0-18.0) g/dL Hct 33.1 L (35.0-51.0) % MCV 84.2 D (80.0-94.0) fl MCH 26.6 L (27.0-31.0) pg MCHC 31.6 L (33.0-37.0) g/dL RDW 16.4 H (11.5-14.5) % Plt Count 156 (130-400) K/uL MPV 9.2 (7.2-11.7) fl Neut % (Auto) 70.2 (50.0-75.0) % Lymph % (Auto) 25.5 (20.0-40.0) % Scurry % (Auto) 3.4 (0.0-10.0) % Eos % (Auto) 0.4 (0.0-4.0) % Baso % (Auto) 0.5 (0.0-2.0) % Neut # 1.8 (1.8-7.0) K/uL Lymph # 0.7 L (1.0-4.3) K/uL Scurry # 0.1 (0.0-0.8) K/uL Eos # 0.0 (0.0-0.7) K/uL Baso # 0.0 (0.0-0.2) K/uL APTT (25.6-37.1) Seconds pCO2 (35-45) mm/Hg pO2 (80-100) mm/Hg HCO3 (21-28) mmol/L ABG pH (7.35-7.45) ABG Total CO2 (22-28) mmol/L ABG O2 Saturation (95-98) % ABG O2 Content (15-23) ML/dL ABG Base Excess (-2.0-3.0) mmol/L ABG Hemoglobin (11.7-17.4) g/dL ABG Carboxyhemoglobin (0.5-1.5) % POC ABG HHb (Measured) (0.0-5.0) % ABG Methemoglobin (0.0-3.0) % ABG O2 Capacity (16-24) mL/dL Richard Test ABG Potassium (3.6-5.2) mmol/L VBG pH (7.32-7.43) VBG pCO2 (40-60) mmHg VBG HCO3 mmol/L VBG Total CO2 (22-28) mmol/L VBG O2 Sat (Calc) (40-65) % VBG Base Excess (0.0-2.0) mmol/L VBG Potassium (3.6-5.2) mmol/L A-a O2 Difference mm/Hg Hgb O2 Saturation (95.0-98.0) % Glucose (75-110) mg/dL Lactate (0.7-2.1) mmol/L Vent Mode Mechanical Rate FiO2 % Tidal Volume PEEP Blood Gas Comments Crit Value Called To Crit Value Called By Crit Value Read Back Blood Gas Notified Time Sodium 149 H (132-148) mmol/l Potassium 4.2 (3.6-5.0) MMOL/L Chloride 102 (98-107) mmol/L Carbon Dioxide 22 (22-30) mmol/L Anion Gap 29 H (10-20) BUN 94 H (9-20) mg/dl Creatinine 12.8 H* (0.8-1.5) mg/dl Est GFR ( Amer) 5 Est GFR (Non-Af Amer) 4 POC Glucose (mg/dL) (65-110) mg/dL Random Glucose 162 H (75-110) mg/dL Lactic Acid 3.2 H (0.7-2.1) MMOL/L Calcium 8.1 L (8.4-10.2) mg/dL Total Bilirubin 0.8 (0.2-1.3) mg/dl AST 52 (17-59) U/L ALT 36 (21-72) U/L Alkaline Phosphatase 94 (38-126) U/L Troponin I (0.00-0.120) ng/mL Total Protein 7.7 (6.3-8.2) G/DL Albumin 4.1 (3.5-5.0) g/dL Globulin 3.6 (2.2-3.9) gm/dL Albumin/Globulin Ratio 1.1 (1.0-2.1) Arterial Blood Potassium (3.6-5.2) mmol/L Venous Blood Potassium (3.6-5.2) mmol/L 03/03/17 03/03/17 03/03/17 Range/Units 05:30 05:27 05:23 WBC (4.8-10.8) K/uL RBC (4.40-5.90) Mil/uL Hgb (12.0-18.0) g/dL Hct (35.0-51.0) % MCV (80.0-94.0) fl MCH (27.0-31.0) pg MCHC (33.0-37.0) g/dL RDW (11.5-14.5) % Plt Count (130-400) K/uL MPV (7.2-11.7) fl Neut % (Auto) (50.0-75.0) % Lymph % (Auto) (20.0-40.0) % Scurry % (Auto) (0.0-10.0) % Eos % (Auto) (0.0-4.0) % Baso % (Auto) (0.0-2.0) % Neut # (1.8-7.0) K/uL Lymph # (1.0-4.3) K/uL Scurry # (0.0-0.8) K/uL Eos # (0.0-0.7) K/uL Baso # (0.0-0.2) K/uL APTT 27.2 (25.6-37.1) Seconds pCO2 52 H (35-45) mm/Hg pO2 78 L (80-100) mm/Hg HCO3 18.9 L (21-28) mmol/L ABG pH 7.20 L (7.35-7.45) ABG Total CO2 21.9 L (22-28) mmol/L ABG O2 Saturation 95.2 (95-98) % ABG O2 Content 13.0 L (15-23) ML/dL ABG Base Excess -7.6 L (-2.0-3.0) mmol/L ABG Hemoglobin 9.9 L (11.7-17.4) g/dL ABG Carboxyhemoglobin 1.0 (0.5-1.5) % POC ABG HHb (Measured) 4.7 (0.0-5.0) % ABG Methemoglobin 1.4 (0.0-3.0) % ABG O2 Capacity 13.7 L (16-24) mL/dL Richard Test Yes ABG Potassium (3.6-5.2) mmol/L VBG pH (7.32-7.43) VBG pCO2 (40-60) mmHg VBG HCO3 mmol/L VBG Total CO2 (22-28) mmol/L VBG O2 Sat (Calc) (40-65) % VBG Base Excess (0.0-2.0) mmol/L VBG Potassium (3.6-5.2) mmol/L A-a O2 Difference 570.0 mm/Hg Hgb O2 Saturation 93.0 L (95.0-98.0) % Glucose (75-110) mg/dL Lactate (0.7-2.1) mmol/L Vent Mode Mechanical Rate 12 FiO2 100.0 % Tidal Volume 500 PEEP Blood Gas Comments Crit Value Called To Crit Value Called By Crit Value Read Back Blood Gas Notified Time Sodium (132-148) mmol/l Potassium (3.6-5.0) MMOL/L Chloride (98-107) mmol/L Carbon Dioxide (22-30) mmol/L Anion Gap (10-20) BUN (9-20) mg/dl Creatinine (0.8-1.5) mg/dl Est GFR ( Amer) Est GFR (Non-Af Amer) POC Glucose (mg/dL) 173 H (65-110) mg/dL Random Glucose (75-110) mg/dL Lactic Acid (0.7-2.1) MMOL/L Calcium (8.4-10.2) mg/dL Total Bilirubin (0.2-1.3) mg/dl AST (17-59) U/L ALT (21-72) U/L Alkaline Phosphatase (38-126) U/L Troponin I (0.00-0.120) ng/mL Total Protein (6.3-8.2) G/DL Albumin (3.5-5.0) g/dL Globulin (2.2-3.9) gm/dL Albumin/Globulin Ratio (1.0-2.1) Arterial Blood Potassium (3.6-5.2) mmol/L Venous Blood Potassium (3.6-5.2) mmol/L 03/02/17 03/02/17 Range/Units 21:38 16:30 WBC (4.8-10.8) K/uL RBC (4.40-5.90) Mil/uL Hgb (12.0-18.0) g/dL Hct (35.0-51.0) % MCV (80.0-94.0) fl MCH (27.0-31.0) pg MCHC (33.0-37.0) g/dL RDW (11.5-14.5) % Plt Count (130-400) K/uL MPV (7.2-11.7) fl Neut % (Auto) (50.0-75.0) % Lymph % (Auto) (20.0-40.0) % Scurry % (Auto) (0.0-10.0) % Eos % (Auto) (0.0-4.0) % Baso % (Auto) (0.0-2.0) % Neut # (1.8-7.0) K/uL Lymph # (1.0-4.3) K/uL Scurry # (0.0-0.8) K/uL Eos # (0.0-0.7) K/uL Baso # (0.0-0.2) K/uL APTT (25.6-37.1) Seconds pCO2 (35-45) mm/Hg pO2 (80-100) mm/Hg HCO3 (21-28) mmol/L ABG pH (7.35-7.45) ABG Total CO2 (22-28) mmol/L ABG O2 Saturation (95-98) % ABG O2 Content (15-23) ML/dL ABG Base Excess (-2.0-3.0) mmol/L ABG Hemoglobin (11.7-17.4) g/dL ABG Carboxyhemoglobin (0.5-1.5) % POC ABG HHb (Measured) (0.0-5.0) % ABG Methemoglobin (0.0-3.0) % ABG O2 Capacity (16-24) mL/dL Richard Test ABG Potassium (3.6-5.2) mmol/L VBG pH (7.32-7.43) VBG pCO2 (40-60) mmHg VBG HCO3 mmol/L VBG Total CO2 (22-28) mmol/L VBG O2 Sat (Calc) (40-65) % VBG Base Excess (0.0-2.0) mmol/L VBG Potassium (3.6-5.2) mmol/L A-a O2 Difference mm/Hg Hgb O2 Saturation (95.0-98.0) % Glucose (75-110) mg/dL Lactate (0.7-2.1) mmol/L Vent Mode Mechanical Rate FiO2 % Tidal Volume PEEP Blood Gas Comments Crit Value Called To Crit Value Called By Crit Value Read Back Blood Gas Notified Time Sodium (132-148) mmol/l Potassium (3.6-5.0) MMOL/L Chloride (98-107) mmol/L Carbon Dioxide (22-30) mmol/L Anion Gap (10-20) BUN (9-20) mg/dl Creatinine (0.8-1.5) mg/dl Est GFR ( Amer) Est GFR (Non-Af Amer) POC Glucose (mg/dL) 154 H 197 H (65-110) mg/dL Random Glucose (75-110) mg/dL Lactic Acid (0.7-2.1) MMOL/L Calcium (8.4-10.2) mg/dL Total Bilirubin (0.2-1.3) mg/dl AST (17-59) U/L ALT (21-72) U/L Alkaline Phosphatase (38-126) U/L Troponin I (0.00-0.120) ng/mL Total Protein (6.3-8.2) G/DL Albumin (3.5-5.0) g/dL Globulin (2.2-3.9) gm/dL Albumin/Globulin Ratio (1.0-2.1) Arterial Blood Potassium (3.6-5.2) mmol/L Venous Blood Potassium (3.6-5.2) mmol/L Laboratory Results - last 24 hr 03/02/17 03/02/17 03/03/17 16:30 21:38 05:23 WBC RBC Hgb Hct MCV MCH MCHC RDW Plt Count MPV Neut % (Auto) Lymph % (Auto) Scurry % (Auto) Eos % (Auto) Baso % (Auto) Neut # Lymph # Scurry # Eos # Baso # APTT pCO2 52 H pO2 78 L HCO3 18.9 L ABG pH 7.20 L ABG Total CO2 21.9 L ABG O2 Saturation 95.2 ABG O2 Content 13.0 L ABG Base Excess -7.6 L ABG Hemoglobin 9.9 L ABG Carboxyhemoglobin 1.0 POC ABG HHb (Measured) 4.7 ABG Methemoglobin 1.4 ABG O2 Capacity 13.7 L Richard Test Yes ABG Potassium VBG pH VBG pCO2 VBG HCO3 VBG Total CO2 VBG O2 Sat (Calc) VBG Base Excess VBG Potassium A-a O2 Difference 570.0 Hgb O2 Saturation 93.0 L Glucose Lactate Vent Mode Mechanical Rate 12 FiO2 100.0 Tidal Volume 500 PEEP Blood Gas Comments Crit Value Called To Crit Value Called By Crit Value Read Back Blood Gas Notified Time Sodium Potassium Chloride Carbon Dioxide Anion Gap BUN Creatinine Est GFR ( Amer) Est GFR (Non-Af Amer) POC Glucose (mg/dL) 197 H 154 H Random Glucose Lactic Acid Calcium Total Bilirubin AST ALT Alkaline Phosphatase Troponin I Total Protein Albumin Globulin Albumin/Globulin Ratio Arterial Blood Potassium Venous Blood Potassium 03/03/17 03/03/17 03/03/17 05:27 05:30 05:30 WBC RBC Hgb Hct MCV MCH MCHC RDW Plt Count MPV Neut % (Auto) Lymph % (Auto) Scurry % (Auto) Eos % (Auto) Baso % (Auto) Neut # Lymph # Scurry # Eos # Baso # APTT 27.2 pCO2 pO2 HCO3 ABG pH ABG Total CO2 ABG O2 Saturation ABG O2 Content ABG Base Excess ABG Hemoglobin ABG Carboxyhemoglobin POC ABG HHb (Measured) ABG Methemoglobin ABG O2 Capacity Richard Test ABG Potassium VBG pH VBG pCO2 VBG HCO3 VBG Total CO2 VBG O2 Sat (Calc) VBG Base Excess VBG Potassium A-a O2 Difference Hgb O2 Saturation Glucose Lactate Vent Mode Mechanical Rate FiO2 Tidal Volume PEEP Blood Gas Comments Crit Value Called To Crit Value Called By Crit Value Read Back Blood Gas Notified Time Sodium 149 H Potassium 4.2 Chloride 102 Carbon Dioxide 22 Anion Gap 29 H BUN 94 H Creatinine 12.8 H* Est GFR ( Amer) 5 Est GFR (Non-Af Amer) 4 POC Glucose (mg/dL) 173 H Random Glucose 162 H Lactic Acid Calcium 8.1 L Total Bilirubin 0.8 AST 52 ALT 36 Alkaline Phosphatase 94 Troponin I Total Protein 7.7 Albumin 4.1 Globulin 3.6 Albumin/Globulin Ratio 1.1 Arterial Blood Potassium Venous Blood Potassium 03/03/17 03/03/17 03/03/17 05:30 05:30 10:52 WBC 2.6 L RBC 3.93 L Hgb 10.5 L Hct 33.1 L MCV 84.2 D MCH 26.6 L MCHC 31.6 L RDW 16.4 H Plt Count 156 MPV 9.2 Neut % (Auto) 70.2 Lymph % (Auto) 25.5 Scurry % (Auto) 3.4 Eos % (Auto) 0.4 Baso % (Auto) 0.5 Neut # 1.8 Lymph # 0.7 L Scurry # 0.1 Eos # 0.0 Baso # 0.0 APTT pCO2 27 L pO2 91 HCO3 16.5 L ABG pH 7.32 L ABG Total CO2 14.7 L ABG O2 Saturation 97.2 ABG O2 Content ABG Base Excess -10.7 L ABG Hemoglobin ABG Carboxyhemoglobin POC ABG HHb (Measured) ABG Methemoglobin ABG O2 Capacity Richard Test Yes ABG Potassium 4.6 VBG pH VBG pCO2 VBG HCO3 VBG Total CO2 VBG O2 Sat (Calc) VBG Base Excess VBG Potassium A-a O2 Difference 588.0 Hgb O2 Saturation Glucose 202 H Lactate 5.0 H* Vent Mode Prvc/ac Mechanical Rate 12 FiO2 100.0 Tidal Volume 500 PEEP Blood Gas Comments Prvc/ac12/vt500/100% Crit Value Called To Dr. migue ricks m.d. Crit Value Called By Camila Crit Value Read Back Y Blood Gas Notified Time 1059 Sodium 140.0 Potassium Chloride 104.0 Carbon Dioxide Anion Gap BUN Creatinine Est GFR ( Amer) Est GFR (Non-Af Amer) POC Glucose (mg/dL) Random Glucose Lactic Acid 3.2 H Calcium Total Bilirubin AST ALT Alkaline Phosphatase Troponin I Total Protein Albumin Globulin Albumin/Globulin Ratio Arterial Blood Potassium 4.6 Venous Blood Potassium 03/03/17 03/03/17 03/03/17 11:09 11:10 11:10 WBC RBC Hgb Hct MCV MCH MCHC RDW Plt Count MPV Neut % (Auto) Lymph % (Auto) Scurry % (Auto) Eos % (Auto) Baso % (Auto) Neut # Lymph # Scurry # Eos # Baso # APTT pCO2 pO2 63 H HCO3 ABG pH ABG Total CO2 ABG O2 Saturation ABG O2 Content ABG Base Excess ABG Hemoglobin ABG Carboxyhemoglobin POC ABG HHb (Measured) ABG Methemoglobin ABG O2 Capacity Richard Test ABG Potassium VBG pH 7.14 L* VBG pCO2 37 L VBG HCO3 12.6 VBG Total CO2 13.7 L VBG O2 Sat (Calc) 89.8 H VBG Base Excess -15.5 L VBG Potassium 5.3 H A-a O2 Difference Hgb O2 Saturation Glucose 162 H Lactate 9.0 H* Vent Mode Mechanical Rate FiO2 100.0 Tidal Volume PEEP 5 Blood Gas Comments Prvc/ac10/vt500/100%/+5peep Crit Value Called To Dr migue ricks m.d. Crit Value Called By Camila Garcia Value Read Back Y Blood Gas Notified Time 1223 Sodium 140.0 Potassium Chloride 103.0 Carbon Dioxide Anion Gap BUN Creatinine Est GFR ( Amer) Est GFR (Non-Af Amer) POC Glucose (mg/dL) Random Glucose Lactic Acid 4.8 H* Calcium Total Bilirubin AST ALT Alkaline Phosphatase Troponin I 0.0900 Total Protein Albumin Globulin Albumin/Globulin Ratio Arterial Blood Potassium Venous Blood Potassium 5.3 H 03/03/17 03/03/17 11:10 12:41 WBC RBC Hgb Hct MCV MCH MCHC RDW Plt Count MPV Neut % (Auto) Lymph % (Auto) Scurry % (Auto) Eos % (Auto) Baso % (Auto) Neut # Lymph # Scurry # Eos # Baso # APTT pCO2 39 pO2 74 L HCO3 11.9 L ABG pH 7.10 L* ABG Total CO2 13.3 L ABG O2 Saturation 91.9 L ABG O2 Content ABG Base Excess -16.6 L ABG Hemoglobin ABG Carboxyhemoglobin POC ABG HHb (Measured) ABG Methemoglobin ABG O2 Capacity Richard Test Yes ABG Potassium 5.5 H VBG pH VBG pCO2 VBG HCO3 VBG Total CO2 VBG O2 Sat (Calc) VBG Base Excess VBG Potassium A-a O2 Difference 590.0 Hgb O2 Saturation Glucose 146 H Lactate 10.2 H* Vent Mode Prvc/ac Mechanical Rate 10 FiO2 100.0 Tidal Volume 500 PEEP Blood Gas Comments Prvc/ac10/vt500/100% Crit Value Called To Dr. migue ricks m.d. Crit Value Called By Camila Garcia Value Read Back Y Blood Gas Notified Time 1250 Sodium 139.0 Potassium Chloride 103.0 Carbon Dioxide Anion Gap BUN Creatinine Est GFR ( Amer) Est GFR (Non-Af Amer) POC Glucose (mg/dL) 173 H Random Glucose Lactic Acid Calcium Total Bilirubin AST ALT Alkaline Phosphatase Troponin I Total Protein Albumin Globulin Albumin/Globulin Ratio Arterial Blood Potassium 5.5 H Venous Blood Potassium Radiology Interpretations (Free Text): as above Fingerstick Blood Sugar Results: 173 Review of Systems - Review of Systems Systems not reviewed;Unavailable: Intubated Critical Care Progress Note - Ventilator Checklist Head of Bed 30 Degrees: Yes Daily Sedation Vacation: No (1st day on MV) Daily Assessment of Readiness to Wean: Yes Daily Spontaneous Breathing Trial: No (1st day on MV) PUD Prophalyxis: Yes DVT Prophylaxis: Yes Oral Care with Chlorhexidine Gluconate {CHG}: Yes - Vent Settings MODE:: ASSIST CONTROL TIDAL VOLUME:: 500 RESP RATE:: 12 FIO2:: 100 - Extremities/Vascular Does the Patient have a Central Venous Catheter?: Yes Insertion Site: Femoral Vein Does the Patient need a Central Venous Catheter?: Yes Does the Patient have a Faith Catheter?: No Does the Patient need a Faith Catheter?: No - Restraints Justification for Restraints: High risk for self extubation, High risk for removing IV access, High risk for harming self - Prophylaxis GI Prophylaxis GI: PPI - Prophylaxis DVT Prophylaxis DVT: Heparin SQ - Nutrition Nutrition: Nutrition Category Date Time Status NPO Diet [DIET] Diets 03/01/17 Breakfast Active Assessment/Plan - Assessment and Plan (Free Text) Plan: Time spent with this patient did not overlap with any other provider's medical or critical care time. Additionally the code selected for the services rendered in this note includes the time spent: talking to the patients family, associated physicians and reviewing hospital data/results not listed here which extended to a total of 45 minutes.
[2017-03-03] MEDS ORDERED: Hydrocortisone Succinat 250 MG vial IV SCH (16:00)
--- NOTE | 2017-03-03 17:55 | CP.PCM.PRO ---
Pronouncement of Note - Clinical Findings Physical Exam: No Response Verbal/Painful Stimuli, Absent Peripheral Pulses{ Carotid & Femoral}, Absent Heart & Breath Sounds, No Pupillary Light Reflex, No Corneal Reflex, Pupils Fixed & Dilated, Absence of Vital Signs - Pronouncement Time Time of Pronouncement of : 16:45 - Notifications Pronouncement Notifications: Family Notified, Atending Notified Product Development Carpenter Notified: No - Autopsy Autopsy Requested: Yes - [place] [id number]
--- NOTE | 2017-03-03 18:11 | RAD ---
PROCEDURE: SMALL BOWEL SERIES HISTORY: f/u COMPARISON: ABDOMEN PELVIS CT EXAMINATION 02/26/2017. TECHNIQUE: Following the oral administration of diluted gastrografin, a small bowel series was performed. Numerous images were captured using over-read technique for 15 minutes up to 7 after hours post oral contrast administration, at which time the examination was terminated. FINDINGS: Plain radiograph reveals prominent distention of small-bowel loops with gas and collapsed appearing large-bowel loops in the periphery of the abdomen. Surgical clips are scattered at the right willard abdomen. There is prominent dilatation of proximal to mid small bowel loops particularly at the left willard abdomen and in the mid to lower pelvis. A small bowel loop in the inferior pelvis appears to measure at least 7.5 cm greatest dimension in fact. Oral contrast is likely encountered and large bowel at the 7.5 hour images with questionable smaller caliber small-bowel loops at the left pelvis region. Therefore, it is difficult to exclude a high-grade but intermittent/ partial distal small bowel obstruction. However, the clinical pattern of this patient's reportedly one of an ileus as the patient is passing gas a does not appear to be in significant distress the discussion of this case with the surgical house staff. Continued clinical and radiographic monitor advised. IMPRESSION: Current small-bowel series pattern suspicious for high-grade intermittent or partial distal small bowel obstruction with marked dilatation of small-bowel loops at the left willard abdomen and in the pelvis though there is a small bowel loop felt to be normal caliber at the left pelvis in the Eliecer phases of the examination. Large bowel appears collapsed. Further clinical correlation is advised as well as radiographic follow-up.
--- NOTE | 2017-03-06 09:11 | PQF SEPSIS ---
This form is a permanent part of the medical record DR. YURY DOWNS: COULD YOU PLEASE CLARIFY IF SEPSIS/SEPSIS SHOCK RULED IN OR OUT AND PRESENT ON ADMISSION. Clarification of your documentation is requested to better reflect the severity of illness and intensity of treatment of your patient. Indicators present [] Temp < 96.8 or > 100.4 [] WBC count > 12,000/mm3 or <000/mm3 or 10% immature neutrophils [] Heart Rate > 90 [] Respiratory Rate > 20 [] Fever or hypothermia [] Chills [] Positive blood cultures [] Hypotension [] Metabolic acidosis (Elevated lactate level, anion gap or reduced blood pH) [] Acute confusion /Altered Mental Status [] Shock [] Other: [] Location in the medical record that reflects the above clinical findings: [] Treatment Provided: [] PHYSICIAN'S RESPONSE Based on your medical judgment of the clinical indicators outlined above, are you treating this patient for a known or suspected: [] Sepsis / Septicemia Please specify organism if known [] [] SIRS (Systemic Inflammatory Response Syndrome) [] Severe Sepsis (Sepsis with Associated Organ Dysfunction) [] Fever of Unknown Origin [] Other, please indicate: [] [] If Unable to Determine, please check the box, sign and date. Present On Admission (POA) Indicator: [] Present at the time of admission [] Not present at the time of admission [] Clinically Undetermined In responding to this query, please exercise your independent professional judgment. The fact that a question is asked does not imply that any particular answer is desired or expected. Thank you for your clarification on this documentation. If you have any questions please call:[ ] * Thank you, * DENIA DOWNING [ [phone] tire tester [place]
== END 2017-03-03 16:45 | DRG 393 ==
LOC: H.ER 10:33 → H.ERHOLD 17:57 → UNDOADMOB 17:57 → H.TEL 02-27 11:08 → H.ERHOLD 02-27 11:08 → OBSVTOIN 02-28 09:31 → INTOOBSV 02-28 09:31 → H.TEL 03-02 09:23 → H.ICU/CCU 03-03 01:39 → UNDOADMOB 03-03 01:45 → H.TEL 03-03 01:45 → OBSVTOIN 03-03 01:45 → H.ICU/CCU 03-03 01:45 → INTOOBSV 03-03 01:45 → H.TEL 03-03 01:45 → H.ICU/CCU 03-03 01:49 → H.TEL 03-03 01:49
PROVIDERS: ADMIT Family Medicine; ATTEND Family Medicine
PROC: 06HY33Z Insertion of Infusion Device into Lower Vein, Percutaneous Approach (ICD-10-PCS; principal; 2017-03-03)
PROC: 06HN33Z Insertion of Infusion Device into Left Femoral Vein, Percutaneous Approach (ICD-10-PCS; 2017-03-03)
PROC: 5A1935Z Respiratory Ventilation, Less than 24 Consecutive Hours (ICD-10-PCS; 2017-03-03)
PROC: 0BH17EZ Insertion of Endotracheal Airway into Trachea, Via Natural or Artificial Opening (ICD-10-PCS; 2017-03-03)
DX: K55.9 Vascular disorder of intestine, unspecified (principal); N18.6 End stage renal disease; R65.21 Severe sepsis with septic shock; A41.9 Sepsis, unspecified organism; E87.2 Acidosis; I95.9 Hypotension, unspecified; D61.818 Other pancytopenia; I12.0 Hypertensive chronic kidney disease with stage 5 chronic kidney disease or end stage renal disease; E11.22 Type 2 diabetes mellitus with diabetic chronic kidney disease; E11.65 Type 2 diabetes mellitus with hyperglycemia; K56.7 Ileus, unspecified; I31.3 Pericardial effusion (noninflammatory); I46.9 Cardiac arrest, cause unspecified; B19.20 Unspecified viral hepatitis C without hepatic coma; Z21 Asymptomatic human immunodeficiency virus [HIV] infection status; E87.5 Hyperkalemia; I25.10 Atherosclerotic heart disease of native coronary artery without angina pectoris; N28.1 Cyst of kidney, acquired; Z79.4 Long term (current) use of insulin; Z90.49 Acquired absence of other specified parts of digestive tract; Z90.5 Acquired absence of kidney; Z99.2 Dependence on renal dialysis; D63.8 Anemia in other chronic diseases classified elsewhere; D72.819 Decreased white blood cell count, unspecified